=== PATIENT | female | born 1950 | race Caucasian/White ===

== ENCOUNTER → 2023-03-29 | Outpatient (CLI) | payer MEDICARE ==
--- NOTE | 2023-03-31 09:29 | PE ---
EXAMINATION TYPE: PET CT fusion skull to thigh DATE OF EXAM: 03/29/2023 CLINICAL INDICATION:Female, 73 years old with history of R91.1 Lung nodule; TECHNIQUE: Following the intravenous administration of 9.5 mCi of F-18 FDG, whole body images are p erformed from the skull base to the midthigh. Images are reviewed on the computer in the coronal, ax ial, and sagittal planes. Reconstructed rotating images are created on independent workstation and r eviewed on the computer. A non-contrast CT is performed in conjunction with the PET scan. Glucose l evel 93 mg/dL CT DLP: 2 3.92 mGycm, Automated exposure control for dose reduction was used. COMPARISON: CT 02/08/2023, PET/CT None, FINDINGS: Mediastinal SUV mean is 1.9. Hepatic parenchyma SUV mean is 2.4. SKULL BASE AND NECK: No FDG avid lymph nodes within the neck examples include: * Right low neck 12 mm Max SUV 13.2. * Left subpectoral lymph node measuring 8 mm Max SUV 10.0. * Left neck lymph node Max SUV 10.0 measuring 13 mm near the parotid gland medially. CHEST, MEDIASTINUM, AND HILAR REGION: Scattered pulmonary nodules throughout the lungs including: * Right upper lobe peripheral nodule which is partially semisolid measuring 2.1 x 2.1 cm image 75 Ma x SUV 1.9. * Medial right upper lobe measuring 11 mm image 83 Max SUV 7.1 * Left lower lobe 16 mm image 24 max SUV 1.5 * Left lower lobe 13 mm image 80 Max SUV 1.6 * Left upper lobe 13 mm image 80 Max SUV 10.2 Mediastinal lymphadenopathy with increased radiotracer uptake. Examples include: * AP window 15 mm Max SUV 11.8. * Subcarinal 15 mm Max SUV 16.5. * Right hilar max SUV 14.0. * Left pulmonary hilum max SUV 9.5. ABDOMEN AND PELVIS: No suspicious radiotracer activity. Left adrenal nodule measuring 2.7 x 2.1 cm and 1.7 x 1.7 cm. Max SUV 12.4 and 8.6 respectively. Right adrenal nodule Max SUV 5.4. Right hepatic dome focus max SUV 5.2. Lymph node under the right jhonathan of the diaphragm max SUV 6.5. Right external lymph node max SUV 15.8. MUSCULOSKELETAL STRUCTURES: Scattered FDG avid lesions are seen throughout the osseous structures. Examples include: * Left distal clavicle max SUV 14.4. * Left rib 1 medially max SUV 12.0. * L4 vertebral body 13.2 * Manubrium max SUV 9.7. * L5 vertebral body/pedicle max SUV 7.0. * Right sacrum max SUV 15.0. * Left periacetabular region max SUV 19.2. * Left iliac bone max SUV 15.4. * Posterior elements of L3 max SUV 10.0. * Spinous process of L2 max SUV 10.7. * Right rib 11 max SUV 16.9 * Right rib 6 anteriorly max SUV 12.5. * Left rib 10 medially max SUV 14.1 * left rib 4 Posteriorly max SUV 8.[address]: Bilateral aphakia. Atherosclerosis of the arterial vasculature. Heart is mildly enlarged fo r size. Scattered colonic diverticula. Renal sinus calcifications likely vascular in etiology. Athero sclerosis of the coronary arteries and aortic valve leaflet. IMPRESSION: Scattered FDG avid lymph nodes, hepatic and adrenal lesions as well as osseous lesions compatible wit h metastatic disease. Some of the pulmonary nodules have low metabolic activity but remain suspicious for metastatic disease. Primary malignancy is unclear based on imaging.
== END | disposition home or self-care (01) ==
LOC: RADPETMAIN 14:55
PROVIDERS: ATTEND Internal Medicine
DX: R91.8 Other nonspecific abnormal finding of lung field (principal)
CPT/HCPCS: 78815; A9552

== ENCOUNTER 2023-04-17 07:53 | Day surgery (SDC) | payer MEDICARE, OTHER ==
[2023-04-17 08:55] VITALS: RESP 16; TEMP 98.3
--- NOTE | 2023-04-17 09:48 | US ---
ULTRASOUND GUIDED CORE BIOPSY LEFT NECK LYMPH NODE: CLINICAL HISTORY: Enlarged left neck lymph node FINDINGS: The procedure was explained to the patient. The risks, complications, benefits and alternatives were discussed and any questions were answered. Informed consent was obtained. Patient was placed supin e on the ultrasound table and prepped and draped in the usual sterile fashion. Utilizing a 18 gauge needle, two passes were made into the requested left lymph node. Patient was stable throughout the procedure. Pathology is pending. All elements of maximal barrier technique were utilized. IMPRESSION: 1. Successful ultrasound guided core biopsy left neck lymph node.
[2023-04-17 10:13] VITALS: BP 143/65; PULSE 70
== END 2023-04-17 09:43 | disposition home or self-care (01) ==
LOC: RADPROMAIN 07:53
PROVIDERS: ATTEND Internal Medicine
DX: R22.1 Localized swelling, mass and lump, neck (principal)
CPT/HCPCS: 20206; 76942; 88305; 88341; 88342

== ENCOUNTER → 2023-05-04 | Outpatient (CLI) | payer MEDICARE ==
--- NOTE | 2023-05-04 15:30 | MR ---
EXAMINATION TYPE: MR brain wo/w con DATE OF EXAM: 05/04/2023 12:22 PM CLINICAL INDICATION:Female, 73 years old with history of C34.90MALIG NEOPLASM OF UNSP PART OF UNSP BR ONC OR LUNG; PH[facility], Lung cancer. COMPARISON: Pet/CT 03/29/2023. TECHNIQUE: Multi planar, multi sequence imaging was performed through the brain including: T1, T2, In version recovery, susceptibility weighted imaging and gradient echo imaging and Diffusion weighted im aging. The patient was then given intravenous contrast and multi planar, T1 fat-saturation images wer e obtained. IV Contrast: 5.5 cc Gadavist FINDINGS: Scattered enhancing foci are present including right occipital lobe measuring 7 mm, right t emporal lobe measuring 6 mm, left mesial temporal lobe measuring 7 mm, and left parietal lobe measuri ng 5 mm. Bilateral choroid plexus and/or granulomas. Mild cerebral atrophy with proportional dilation of ventricular system. Diffusion-weighted imaging shows no evidence of restricted diffusion to sugg est acute/subacute infarct. Intracranial arterial flow voids are maintained. Midline structures show no abnormality. Scattered foci of high T2 signal intensity are seen within the periventricular white matter. The susceptibility weighted images reveal microhemorrhage infarct in the right frontal lobe w ith focus of blooming artifact. The bone marrow signal is within normal limits. Paranasal sinuses and mastoid air cells: No significant paranasal sinus disease. Visualized orbits: Bilaterally aphakia. IMPRESSION: 1. Scattered metastatic disease throughout the brain. 2. No evidence for acute/subacute infarct. 3. Nonspecific white matter changes, likely related to small vessel ischemic disease.
== END | disposition home or self-care (01) ==
LOC: RADMRIMAIN 11:32
PROVIDERS: ATTEND Internal Medicine
DX: C34.90 Malignant neoplasm of unspecified part of unspecified bronchus or lung (principal); C79.31 Secondary malignant neoplasm of brain; R90.82 White matter disease, unspecified
CPT/HCPCS: 70553; A9585

== ENCOUNTER → 2023-05-21 | Outpatient (CLI) | payer MEDICARE, OTHER ==
--- NOTE | 2023-05-21 14:34 | US ---
EXAMINATION TYPE: US venous doppler duplex LE LT DATE OF EXAM: 05/21/2023 2:22 PM COMPARISON: NONE CLINICAL INDICATION: Female, 73 years old with history of R22.42 LOCALIZED SWELLING, MASS AND LUMP, L EFT; Pt states left leg pain, on chemo SIDE PERFORMED: Left TECHNIQUE: The lower extremity deep venous system is examined utilizing real time linear array sonog elton with graded compression, doppler sonography and color-flow sonography. VESSELS IMAGED: Common Femoral Vein Deep Femoral Vein Greater Saphenous Vein * Femoral Vein Popliteal Vein Small Saphenous Vein * Proximal Calf Veins (* superficial vessels) Left Leg: Negative for DVT Results called to Elizabet at time of exam IMPRESSION: Grayscale, color doppler, spectral doppler imaging performed of the deep veins of the lo wer extremities. There is normal flow, compressibility, vascular waveforms.
== END | disposition home or self-care (01) ==
LOC: RADUSWWP 13:43
PROVIDERS: ATTEND Radiology Radiation Oncology
DX: R22.42 Localized swelling, mass and lump, left lower limb (principal)

== ENCOUNTER → 2023-06-11 | Outpatient (CLI) | payer MEDICARE, OTHER ==
--- NOTE | 2023-06-11 17:32 | MR ---
EXAMINATION TYPE: MR brain wo/w con DATE OF EXAM: 06/11/2023 12:03 PM COMPARISON: NONE HISTORY: Malignant neoplasm of brain CONTRAST: Patient received 5 mL intravenous Gadavist gadolinium contrast. Multiplanar and multispin-echo imaging of the brain was performed . Pre and post contrast enhanced i mages are obtained. The ventricles, basal cisterns and sulci overlying the cerebral convexities are mildly enlarged. There is evidence of mild periventricular white matter ischemic demyelination. Remote deep white matter insults are also noted. No acute edema is seen on diffusion weighted imaging. There is no evidence for midline shift or mass effect. Acute intracranial hemorrhage or extra-axial collection is not evident. Right occipital lesion image 93 measures 4.8 mm versus 7.5 mm previously. Posterior right parietal le isaac image 83 measures 3.6 mm versus 6.2 mm previously. Lesion adjacent to the proximal temporal horn on the left image 70 measures 5.1 mm versus 7.1 mm previously. No new lesions are seen. The paranasal sinuses and mastoid air cells are well-aerated. IMPRESSION: Age-related atrophic and chronic small vessel ischemic change. No acute intracranial process at this time. No new lesions are seen. 3 lesions described persist although are smaller in size.
== END | disposition home or self-care (01) ==
LOC: RADMRIMAIN 10:26
PROVIDERS: ATTEND Radiology Radiation Oncology
DX: G31.1 Senile degeneration of brain, not elsewhere classified (principal); I67.82 Cerebral ischemia; C79.31 Secondary malignant neoplasm of brain; C79.89 Secondary malignant neoplasm of other specified sites; C79.51 Secondary malignant neoplasm of bone; C80.1 Malignant (primary) neoplasm, unspecified
CPT/HCPCS: 70553; A9585

== ENCOUNTER 2023-06-18 17:28 | Emergency (ER) | payer MEDICARE, OTHER ==
--- NOTE | 2023-06-18 17:44 | ED ---
General Adult HPI - General Chief complaint: Extremity Problem,Nontraumatic Stated complaint: R Leg Pain Time Seen by Provider: 06/18/23 17:42 Source: patient, family, RN notes reviewed Mode of arrival: wheelchair Limitations: no limitations - History of Present Illness Initial comments: 73 year old female presents to the emergency department for evaluation of right leg pain. She states that the pain is mostly in her right hip she denies any lower extremity swelling, redness. Denies recent fever, chills, nausea, vomiting. Patient states that she has bone cancer in her ribs and spine. She undergoes immunotherapy. She reports having a treatment today. Patient states that she takes oxycodone which has not been helping. - Related Data Home Medications Medication Instructions Recorded Confirmed Aspirin EC [Ecotrin Low Dose] 81 mg PO DAILY 04/09/23 04/17/23 amLODIPine BESYLATE/BENAZEPRIL 1 cap PO HS 04/09/23 04/17/23 [Lotrel 10-20 mg Capsule] Previous Rx's Medication Instructions Recorded Lidocaine 5% Patch [Lidoderm 5% 1 patch TOPICAL DAILY #30 patch 06/18/23 Patch] Allergies Allergy/AdvReac Type Severity Reaction Status Date / Time almond oil Allergy Rash/Hives Verified 04/17/23 08:39 Review of Systems ROS Statement: Those systems with pertinent positive or pertinent negative responses have been documented in the HPI. ROS Other: All systems not noted in ROS Statement are negative. Past Medical History Past Medical History: Cancer, Hypertension Additional Past Medical History / Comment(s): ENDOMETRIOSIS, BASAL CELL CARCINOMA LEFT ANKLE 2021 History of Any Multi-Drug Resistant Organisms: None Reported Past Surgical History: Hernia Repair, Tubal Ligation Additional Past Surgical History / Comment(s): CYST REMOVAL ON VOCAL CORDS Past Anesthesia/Blood Transfusion Reactions: No Reported Reaction Past Psychological History: No Psychological Hx Reported Smoking Status: Current every day smoker Past Alcohol Use History: Rare Past Drug Use History: None Reported - Past Family History Sister(s) Family Medical History: Cancer Additional Family Medical History / Comment(s): colon cancer, epiglottis cancer General Exam Limitations: no limitations General appearance: alert, in no apparent distress Head exam: Present: atraumatic, normocephalic, normal inspection Eye exam: Present: normal appearance, PERRL, EOMI. Absent: scleral icterus, conjunctival injection, periorbital swelling ENT exam: Present: normal exam, mucous membranes moist Neck exam: Present: normal inspection. Absent: tenderness, meningismus, lymphadenopathy Respiratory exam: Present: normal lung sounds bilaterally. Absent: respiratory distress, wheezes, rales, rhonchi, stridor Cardiovascular Exam: Present: regular rate, normal rhythm, normal heart sounds. Absent: systolic murmur, diastolic murmur, rubs, gallop, clicks GI/Abdominal exam: Present: soft, normal bowel sounds. Absent: distended, tenderness, guarding, rebound, rigid Extremities exam: Present: normal inspection, full ROM, tenderness (Right hip), normal capillary refill. Absent: pedal edema, joint swelling, calf tenderness Back exam: Present: normal inspection Neurological exam: Present: alert, oriented X3 Psychiatric exam: Present: normal affect, normal mood Skin exam: Present: warm, dry, intact, normal color. Absent: rash Course Vital Signs 06/18/23 06/18/23 06/18/23 17:36 20:41 21:30 Temperature 98.6 F 97.8 F 97.8 F Pulse Rate 93 92 82 Respiratory 20 18 18 Rate Blood Pressure 162/79 138/78 136/72 O2 Sat by Pulse 96 98 98 Oximetry Medical Decision Making - Medical Decision Making Was pt. sent in by a medical professional or institution ([facility], [facility], urgent care, hospital, or detention...) When possible be specific @ -No Did you speak to anyone other than the patient for history (EMS, parent, family, police, friend...)? What history was obtained from this source @ -No Did you review nursing and triage notes (agree or disagree)? Why? @ -I reviewed and agree with nursing and triage notes Were old charts reviewed (outside hosp., previous admission, EMS record, old EKG, old radiological studies, urgent care reports/EKG's, detention records)? Report findings @ -No old charts were reviewed Differential Diagnosis (chest pain, altered mental status, abdominal pain women, abdominal pain men, vaginal bleeding, weakness, fever, dyspnea, syncope, headache, dizziness, GI bleed, back pain, seizure, CVA, palpatations, mental health, musculoskeletal)? @ -Differential Musculoskeletal Muscular strain, contusion, ligament sprain, fracture, arthritis, septic arthritis, bursitis, cellulitis, muscle spasm, nerve compression, DVT, arterial occlusion, herpes zoster, electrolyte abnormality, tumor.... This is not meant to be in all inclusive list EKG interpreted by me (3pts min.). @ -None X-rays interpreted by me (1pt min.). @ -X-ray of the right femur obtained which shows no acute fracture or lytic lesion CT interpreted by me (1pt min.). @ -None done U/S interpreted by me (1pt. min.). @ -None done What testing was considered but not performed or refused? (CT, X-rays, U/S, labs)? Why? @ -None What meds were considered but not given or refused? Why? @ -None Did you discuss the management of the patient with other professionals (professionals i.e. , PA, [facility], lab, RT, psych nurse, social science manager, academic affairs specialist, teacher, environmental technical officer, case management coordinator)? Give summary @ -No Was smoking cessation discussed for >3mins.? @ -No Was critical care preformed (if so, how long)? @ -No Were there social determinants of health that impacted care today? How? (Homelessness, low income, unemployed, alcoholism, drug addiction, transportation, low edu. Level, literacy, decrease access to med. care, residential, rehab)? @ -No Was there de-escalation of care discussed even if they declined (Discuss DNR or withdrawal of care, Hospice)? DNR status @ -No What co-morbidities impacted this encounter? (DM, HTN, Smoking, COPD, CAD, Cancer, CVA, ARF, Chemo, Hep., AIDS, mental health diagnosis, sleep apnea, morbid obesity)? @ -None Was patient admitted / discharged? Hospital course, mention meds given and route, prescriptions, significant lab abnormalities, going to OR and other pertinent info. @ -Discharge. Patient presented to the emergency department for evaluation of right leg pain. Patient has been taking her home medications without relief. Patient is hoping for symptom control at this time. X-rays obtained which show no acute fracture or lytic lesions at this time. Patient was provided pain medication and is feeling much better. Patient agreeable with plan to discharge home. Patient stable at time of discharge. Case discussed with Dr. Wren Undiagnosed new problem with uncertain prognosis? @ -No Drug Therapy requiring intensive monitoring for toxicity (Heparin, Nitro, Insulin, Cardizem)? @ -No Were any procedures done? @ -No Diagnosis/symptom? @ -Right leg pain, bone cancer Acute, or Chronic, or Acute on Chronic? @ -Acute Uncomplicated (without systemic symptoms) or Complicated (systemic symptoms)? @ -Uncomplicated Side effects of treatment? @ -No Exacerbation, Progression, or Severe Exacerbation? @ -No Poses a threat to life or bodily function? How? (Chest pain, [place], [place], pneumonia, PE, COPD, DKA, ARF, appy, cholecystitis, CVA, Diverticulitis, Homicidal, Suicidal, threat to staff... and all critical care pts) @ -No Disposition Clinical Impression: Right leg pain Disposition: HOME SELF-CARE Condition: Stable Instructions (If sedation given, give patient instructions): Arthralgia (ED) Additional Instructions: Please follow up with your appointment as scheduled tomorrow. Return to the emergency department for new or worsening symptoms. Prescriptions: Lidocaine 5% Patch [Lidoderm 5% Patch] 1 patch TOPICAL DAILY #30 patch Is patient prescribed a controlled substance at d/c from ED?: No Referrals: Dario Aguiar MD [REFERRING] - 1-2 days
[2023-06-18] MEDS: LIDOCAINE 4% PATCH TOPICAL ONE (20:27)
[2023-06-18] MEDS: KETOROLAC 15 MG/ML 1 ML VIAL IM STA (20:28)
[2023-06-18] MEDS: HYDROmorphone 1 MG/ML 1 ML SYRINGE IM STA (20:30)
--- NOTE | 2023-06-18 20:37 | XR ---
EXAMINATION TYPE: XR femur 2 views RT DATE OF EXAM: 06/18/2023 Comparison: None Clinical History: 73-year-old female pain, hx bone ca Findings: Vascular calcifications are present. Osteopenia. No acute fracture, subluxation, dislocation seen. No knee joint effusion. Generalized muscle atrophy. Impression: Vascular calcifications. Osteopenia. No lytic destructive lesion is identified within the right femur at this time.
[2023-06-18 20:47] VITALS: RESP 18; TEMP 97.8
[2023-06-18 21:43] VITALS: BP 136/72; PULSE 82
== END 2023-06-18 21:30 | disposition home or self-care (01) ==
LOC: EC 17:28
DX: M79.604 Pain in right leg (principal); I10 Essential (primary) hypertension; F17.200 Nicotine dependence, unspecified, uncomplicated; Z79.82 Long term (current) use of aspirin; Z79.899 Other long term (current) drug therapy; Z88.8 Allergy status to other drugs, medicaments and biological substances
CPT/HCPCS: 73552; 99283; 96372 ×2; J1170; J1885

== ENCOUNTER → 2023-06-21 | Outpatient (CLI) | payer MEDICARE, OTHER ==
--- NOTE | 2023-06-22 10:13 | MR ---
EXAMINATION TYPE: MR hip RT wo/w con DATE OF EXAM: 06/21/2023 COMPARISON: Prior PET/CT March 29, 2023 HISTORY: Right hip pain, secondary malignant neoplasm of brain/bone/other sites. Metastatic lung canc er. CONTRAST: Standard multiplanar, multisequence MRI departmental protocol images were obtained without contrast a nd with 5.5 mL intravenous Gadavist gadolinium contrast. FINDINGS: There is mild to moderate narrowing and mild spurring of both hip joints. There are symmetr ic small hip joint effusions. Femoral head shapes are maintained bilaterally. Tiny T2 hyperintense le sions in the superior aspect of this are seen bilaterally. Lesion slightly larger on the right with a djacent T2 hyperintense lesion in the superior acetabulum. No definitive enhancing osseous lesion in the right hip. Left inferior acetabulum shows larger enhancing lesions corresponding to PET/CT with m etastatic lesion extending into the anterior wall and column. Muscle bulk is symmetric and maintained bilaterally. No groin hernia or adenopathy is seen. There are additional metastatic lesions throughout the bilateral sacrum with largest one abutting the right sacroiliac joint. There are additional left iliac bone metastatic foci. Distal colonic diverticula are present. No bowel dilatation. No free fluid in the pelvis. Urinary joyce dder is unremarkable. IMPRESSION: Osseous metastatic disease is redemonstrated. Some slight progression in size and number of lesions from recent PET/CT noted. One of largest lesions in the anterior left hip is redemonstrate d. No definitive new focal metastatic lesions in the right hip.
== END | disposition home or self-care (01) ==
LOC: RADMRIMAIN 21:15
PROVIDERS: ATTEND Radiology Radiation Oncology
DX: C79.51 Secondary malignant neoplasm of bone (principal); C79.31 Secondary malignant neoplasm of brain; C79.89 Secondary malignant neoplasm of other specified sites; C34.90 Malignant neoplasm of unspecified part of unspecified bronchus or lung
CPT/HCPCS: 73723; A9585

== ENCOUNTER → 2023-06-24 | Outpatient (CLI) | payer MEDICARE, OTHER ==
--- NOTE | 2023-07-01 15:41 | MR ---
EXAMINATION TYPE: MR femur/thigh RT wo/w con DATE OF EXAM: 06/24/2023 COMPARISON: Correlation MRI right hip 06/21/2023 HISTORY: 73-year-old female C79.51, C79.31, Right thigh pain x5 months, Hx Lung cancer and also cance r in Ribs, shoulder, ankle, neck, lymph nodes, TECHNIQUE: Multiplanar, multisequence images of the right femur were obtained before and after admini stration of 5.5 mL intravenous Gadavist gadolinium contrast. Coronal and axial images of the contral ateral side for comparison purposes. FINDINGS: Very heterogeneous marrow signal throughout likely in part reflecting red marrow hyperplasia. Known o sseous metastatic disease anterior right femoral head. A 9 mm intramedullary focus of bright T2 signal and marrow replacement along the proximal third femor al shaft, coronal image 14 and postcontrast sagittal image 18. This shows avid postcontrast enhanceme nt but no significant associated cortical thinning or associated soft tissue component. There is mild adjacent muscular edema within the anterior quadriceps showing corresponding postcontra st enhancement. Incidentally, there is an intramuscular lipoma of the adjacent vastus medialis at this same level piedad suring 6.7 x 2.6 x 1.4 cm. No suspicious nodularity or enhancing components are seen here Questionable second intramedullary lesion at the subtrochanteric level measuring 1.0 cm showing faint enhancement. IMPRESSION: 1. An enhancing 9 mm intramedullary osseous metastasis within the proximal third right femoral shaft. No associated cortical thinning or extraosseous soft tissue component. 2. Some nonspecific edema in the quadriceps musculature just anterior to this level. No soft tissue d eposit is seen here. The exact etiology for the muscular edema is unclear. 3. 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 Questionable clinical significance. 4. Possible second intramedullary lesion in the subtrochanteric proximal right femur. Again, no corti galdino destruction or extraosseous soft tissue component. 5. Known osseous metastasis anterior right femoral head.
== END | disposition home or self-care (01) ==
LOC: RADMRIMAIN 20:45
PROVIDERS: ATTEND Radiology Radiation Oncology
DX: C79.51 Secondary malignant neoplasm of bone (principal); C79.31 Secondary malignant neoplasm of brain; C79.89 Secondary malignant neoplasm of other specified sites; C80.1 Malignant (primary) neoplasm, unspecified; R60.0 Localized edema
CPT/HCPCS: 73720; A9585

== ENCOUNTER → 2023-08-19 | Outpatient (CLI) | payer MEDICARE ==
--- NOTE | 2023-08-19 12:44 | MR ---
EXAMINATION TYPE: MR brain wo/w con DATE OF EXAM: 08/19/2023 12:26 PM CLINICAL INDICATION:Female, 73 years old with history of C79.51 SECONDARY MALIGNANT NEOPLASM OF BONE C79.31; PHH, Malignant neoplasm of brain. COMPARISON: 06/11/2023. 05/04/2023 TECHNIQUE: Multi planar, multi sequence imaging was performed through the brain including: T1, T2, In version recovery, susceptibility weighted imaging and gradient echo imaging and Diffusion weighted im aging. The patient was then given intravenous contrast and multi planar, T1 fat-saturation images wer e obtained. IV Contrast: 5.5 cc Gadavist FINDINGS: * Interval decrease in size of right occipital lobe enhancing focus measuring 3 mm, previously 7 on 05/04/2023 and 5 mm on 06/11/2023. Series 801 image 128. * Right temporal lobe lesion is no longer visualized. * There remains tiny focus in the left parietal lobe 2-3 mm of enhancement. Series 801 image 145. Abnormal enhancement within the left temporalis muscle is unchanged series 801 image 120 measuring 11 x 5 mm measuring 11 x 5 mm dating back to 05/04/2023 possibly vascular etiology. The escalona-white junctions, ventricular system, basal cisterns appear unremarkable. Diffusion-weighted imaging shows no evidence of restricted diffusion to suggest acute/subacute infarct. Intracranial ar terial flow voids are maintained. Midline structures show no abnormality. Scattered foci of high T2 s ignal intensity are seen within the periventricular white matter. Focus of Blooming artifact in the r ight frontal lobe compatible with tiny microhemorrhage. The bone marrow signal is within normal limits. Paranasal sinuses and mastoid air cells: No significant paranasal sinus disease. Visualized orbits: Orbital contents are intact. IMPRESSION: 1. Continued decrease in size of right occipital and left parietal metastatic foci. The right tempora l focus seen on prior is no longer visualized. No new lesions are identified. 2. Nonspecific white matter changes, likely related to small vessel ischemic disease.
== END | disposition home or self-care (01) ==
LOC: RADMRIMAIN 10:24
PROVIDERS: ATTEND Radiology Radiation Oncology
DX: G93.89 Other specified disorders of brain (principal); C79.31 Secondary malignant neoplasm of brain; C79.51 Secondary malignant neoplasm of bone; C79.89 Secondary malignant neoplasm of other specified sites
CPT/HCPCS: 70553; A9585

== ENCOUNTER → 2023-09-05 | Outpatient (CLI) | payer MEDICARE ==
--- NOTE | 2023-09-07 10:25 | PE ---
EXAMINATION TYPE: PET CT fusion whole body DATE OF EXAM: 09/05/2023 CLINICAL INDICATION:Female, 73 years old with history of C34.11 MALIGNANT NEOPLASM OF UPPER LOBE, RIG HT BRO; TECHNIQUE: Following the intravenous administration of 8.1 mCi of F-18 FDG, whole body images are p erformed from the skull base to the midthigh. Images are reviewed on the computer in the coronal, ax ial, and sagittal planes. Reconstructed rotating images are created on independent workstation and r eviewed on the computer. A non-contrast CT is performed in conjunction with the PET scan. Glucose l evel 101 mg/dL CT DLP: 345 mGycm, Automated exposure control for dose reduction was used. COMPARISON: CT None, PET/CT 03/29/2023, FINDINGS: Mediastinal SUV mean is 1.6. Hepatic parenchyma SUV mean is 2.25. SKULL BASE AND NECK: FDG avid lymph nodes within the neck examples include: * Right low neck 12 mm Max SUV 2.4, previously 13.2. * Left subpectoral lymph node measuring 8 mm is no longer visualized previously max SUV 10.0. * Left neck lymph node Max SUV 2.1, previously 10.0 not well appreciated due to surrounding tissues CHEST, MEDIASTINUM, AND HILAR REGION: Scattered pulmonary nodules throughout the lungs including: * Right upper lobe peripheral nodule which is partially semisolid measuring Max SUV 2.84, previously 1.9. * Medial right upper lobe not visualized on today's exam. * Left lateral lower lobe max SUV 1.1, percentage 1.3 * Left superior hilar lymph nodule Max SUV 5.9 previously 4.1. * Left upper lobe 13 mm image 80 Max SUV 4.2, previously 10.2 * Posterior left lower lobe max SUV 3.97, previously 2.7. Mediastinal lymphadenopathy with increased radiotracer uptake. Examples include: * AP window, lymphadenopathy max SUV 6.8, previously 12.96 * Subcarinal Max SUV 2.3, previously 16.5. * Right pulmonary hilum max SUV 2.7, previously 14.0. * Left pulmonary hilum max SUV 3.7, previously 9.5. ABDOMEN AND PELVIS: * Left adrenal nodule Max SUV 2.4, previously 2 nodules 12.4 respectively. * Right adrenal nodule Max SUV 2.6, personally 5.4. * Right hepatic dome focus along the visualized, previously max SUV 5.2. * Lymph node under the right jhonathan of the diaphragm with no longer visualized previously max SUV 6.5. * Right external iliac chain lymph node max SUV 2.7, previously 15.8. MUSCULOSKELETAL STRUCTURES: Scattered FDG avid lesions are seen throughout the osseous structures. Examples include: * Left distal clavicle max SUV 6.3, previously 14.4 destructive bony changes at this time is no pres ent. * Left rib 1 medially max SUV 3.19, previously 12.0. * L4 vertebral body max SUV 5.9, previously 13.2 destructive bony changes with compression fracture on today's exam with 50% height loss * Manubrium max SUV 5.6, previously 9.7 destructive bony changes at this time is no present. * L5 vertebral body/pedicle max SUV 2.4, previously 7.0. * Right sacrum max SUV 2.16, appears 15.0. * Left periacetabular region max SUV 4.5, previously 19.2. * Left iliac bone max SUV 3.1, previously 15.4. * Posterior elements of L3 max SUV 1.78, previous 10.0. * Spinous process of L1 max SUV 4.79, previously 10.7. * Right rib 11 max SUV 3.68, previously 16.9 * Right rib 6 anteriorly max SUV 4.29, previously 12.5. * Left rib 10 medially max SUV 5.46, previously 14.1 * Left scapula max SUV 5.8, previously 11.[address]: Bilateral aphakia. Atherosclerosis of the arterial vasculature. Heart is mildly enlarged fo r size. Scattered colonic diverticula. Renal sinus calcifications likely vascular in etiology. Athero sclerosis of the coronary arteries and aortic valve leaflet. IMPRESSION: A majority of the lymph nodes have decreased in metabolic activity and size while the pulmonary nodul es have mostly increased in metabolic activity compared to prior. Also majority of the osseous struct ures have decreased in metabolic activity but demonstrate destructive changes on today's exam. Pathol ogic fracture of L4 vertebral body with 50% height loss is now present.
== END | disposition home or self-care (01) ==
LOC: RADPETMAIN 11:56
PROVIDERS: ATTEND Family Medicine
DX: C34.11 Malignant neoplasm of upper lobe, right bronchus or lung (principal); R91.8 Other nonspecific abnormal finding of lung field; M79.606 Pain in leg, unspecified
CPT/HCPCS: 78816; A9552

== ENCOUNTER → 2023-11-21 | Outpatient (CLI) | payer MEDICARE ==
--- NOTE | 2023-11-25 13:09 | MR ---
EXAMINATION TYPE: MR brain wo/w con DATE OF EXAM: 11/21/2023 COMPARISON: 08/19/2023 HISTORY: Cancer in Lung, Ribs, shoulder, ankle neck and lymph nodes, Right sided numbness CONTRAST: Performed utilizing 4.5 mL intravenous Gadavist gadolinium contrast. TECHNIQUE: Multiplanar, multiecho imaging on a 3.0 Kiley magnet is performed through the brain. Stud y is performed within 24 hours of arrival to the hospital. The craniovertebral junction is normal. The pituitary is normal. Diffusion-weighted imaging is performed. No abnormal hyperintensity is present to suggest an acute i ntracranial infarct or acute ischemic change. Is some mild increased uptake within the left delroy may be some chronic white matter ischemic change. Periventricular white matter hyperintensities present on inversion recovery and T2-weighted sequences . The largest area is in the right centrum semiovale measuring 0.5 cm. Additional centrum semiovale white matter changes are present. Ventricles and sulci are appropriate for the patient age. There is stable fullness within the bilater al choroid plexus near the posterior lateral ventricles. Within the left parietal calvarium there is a 0.4 x 1.8 cm area of enhancement present previously and larger than the comparison of 0.5 x 1.1 cm. Previous enhancement in the right occipital lobe is not evident on the current exam. Previous enhance ment in the left occipital cortex not evident on the current exam. IMPRESSION: 1. Increased prominence of a left parietal calvarial enhancing lesion. 2. Previous areas of enhancement within the occipital lobes not evident on the current exam.
== END | disposition home or self-care (01) ==
LOC: RADMRIMAIN 12:27
PROVIDERS: ATTEND Radiology Radiation Oncology
DX: C79.31 Secondary malignant neoplasm of brain (principal); C79.51 Secondary malignant neoplasm of bone
CPT/HCPCS: 70553; A9585

== ENCOUNTER → 2023-12-19 | Outpatient (CLI) | payer MEDICARE, OTHER ==
--- NOTE | 2024-01-16 09:53 | PE ---
Patient: Elenita Cordero Ordering Physician: Unknown, Unknown ID: [id number] Phone, Pager: Phone: N/A Pager: N/A : [phone] Age/Gender: 73Y, F Primary Location: N/A Procedure: PETCT SKULL TO THIGH [facility] Date: 12/19/2023 2:06:00 PM EXAMINATION TYPE: PET CT fusion skull to thigh DATE OF EXAM: 12/27/2023 CLINICAL INDICATION: Lung cancer TECHNIQUE: Following the intravenous administration of 11.05 mCi of F-18 FDG, whole body images are performed from the skull base to the midthigh. Images are reviewed on the computer in the coronal, axial, and sagittal planes. Reconstructed rotating images are created on independent workstation and reviewed on the computer. A non-contrast CT is performed in conjunction with the PET scan. Glucose level 1:30 mg/dL CT DLP: 159 mGycm, Automated exposure control for dose reduction was used. COMPARISON: CT None, PET/CT 09/05/2023, MRI: None FINDINGS: Mediastinal SUV mean is 1.2. Hepatic parenchyma SUV mean is 1.8 SKULL BASE AND NECK: Physiologic uptake within the left spare fixer muscles. No suspicious FDG avid lymph nodes CHEST, MEDIASTINUM, AND HILAR REGION: Scattered pulmonary nodules throughout the lungs including: * Right upper lobe peripheral nodule which is partially semisolid measuring Max SUV 2.9, previously 2 .84, 1.9. * Left lateral lower lobe max SUV 1.3, previously 1.1, 1.3 * Left superior hilar lymph nodule Max SUV 2.7, previously 5.9 4.1. * Left upper lobe 13 mm image 80 Max SUV 1.8, previously 4.2, 10.2 * Posterior left lower lobe max SUV 1.3, previously 3.97, 2.7. No FDG avid lymph nodes in the mediastinum on today's exam. Right axillary lymph node max SUV 2.3, pr eviously 2.6. Left axillary lymph nodes max SUV 4.2, previously 6.8. These are both similar in size to prior measuring 7 mm on the right and 12 mm in short axis on the le ft. ABDOMEN AND PELVIS: * Left adrenal nodule Max SUV 2.4, previously 2 nodules 12.4 respectively. * Right adrenal nodule Max SUV 2.6, personally 5.4. * Right hepatic dome focus along the visualized, previously max SUV 5.2. * Lymph node under the right jhonathan of the diaphragm with no longer visualized previously max SUV 6.5. * Right external iliac chain lymph node max SUV 2.7, previously 15.8. MUSCULOSKELETAL STRUCTURES: Interval decrease in metabolic activity within the osseous lesions. Compression fracture of L4 possibly pathologic with up to 50-70% height loss and retropulsion. OTHER CT: Bilateral aphakia. Atherosclerosis of the arterial vasculature. Heart is mildly enlarged fo r size. Scattered colonic diverticula. Renal sinus calcifications likely vascular in etiology. Athero sclerosis of the coronary arteries and aortic valve leaflet. IMPRESSION: 1. Positive response to therapy with decrease in metabolic activity throughout the lesions seen on p rior. There remains bilateral axillary lymph nodes with mild uptake and decreasing uptake within pulm onary nodule. 2. No suspicious uptake within the osseous lesion seen on prior on today's exam. 3. Compression fracture of L4 possibly pathologic with up to 50-70% height loss and retropulsion. Si milar appearance to 09/05/2023.
== END | disposition home or self-care (01) ==
LOC: RADPETMAIN 12:21
PROVIDERS: ATTEND Internal Medicine
DX: C34.11 Malignant neoplasm of upper lobe, right bronchus or lung (principal); M48.56XA Collapsed vertebra, not elsewhere classified, lumbar region, initial encounter for fracture
CPT/HCPCS: 78815; A9552

== ENCOUNTER → 2024-02-11 | Outpatient (CLI) | payer MEDICARE ==
--- NOTE | 2024-02-19 22:39 | MR ---
EXAMINATION TYPE: MR brain wo/w con DATE OF EXAM: 02/11/2024 COMPARISON: 11/21/2023 HISTORY: 74-year-old female C79.31, Lung cancer, brain mets. TECHNIQUE: Multiplanar, multisequence images of the brain and brainstem were acquired before and aft er administration of 4 mL IV Gadavist. Diffusion weighted imaging is performed. FINDINGS: No suspicious restricted diffusion to suggest acute infarct. Scattered patchy areas of mild vasogenic edema related to avidly enhancing cortical/subcortical lesio ns. The largest measures 1 cm at the right frontal insular cortex junction. Largest on the left measu res 6 mm at the medial posterior temporal lobe.. There are 3 lesions in the right cerebral hemisphere and 2 lesions in the left cerebral hemisphere. In retrospect, these lesions were either not present or punctate very difficult to appreciate, larges t measuring up to 4 mm. No midline shift, herniation, hydrocephalus, or extra-axial fluid collection. There is moderate volume loss overlying the bilateral cerebral convexities and background mild-to-mod erate scattered bright white matter change related to chronic small vessel ischemic disease. Bilateral choroid plexus cysts. Some internal debris on the right. Redemonstrated plaque-like area of enhancement along the left lateral temporal scalp measuring 1.6 cm AP, not significantly changed. Major intracranial flow voids are intact. Midline structures demonstrate normal morphology. The craniocervical junction is normal. Dural venous sinuses are patent. Mild mucosal thickening ethmoid air cells. Small amount of fluid inferior left mastoid air cells. Alyssa bes are intact. IMPRESSION: 1. Approximately 5 small enhancing foci of brain metastases. The largest measures 1 cm on the right a nd 6 cm on the left. Associated mild vasogenic edema. In retrospect, compared to 11/21/2023, these les ions were either not present or were punctate and very difficult to appreciate. Findings compatible w ith interval disease progression. 2. The plaque-like enhancement along the left lateral temporal scalp measuring 1.6 cm AP is not signi ficantly changed. 3. Background mild to moderate burden of chronic small vessel ischemic disease and moderate cerebral atrophy. [facility], Workstation: [email or web address], 02/19/2024 10:37 PM
== END | disposition home or self-care (01) ==
LOC: RADMRIMAIN 11:20
PROVIDERS: ATTEND Radiology Radiation Oncology
DX: C79.31 Secondary malignant neoplasm of brain
CPT/HCPCS: 70553

== ENCOUNTER → 2024-04-09 | Outpatient (CLI) | payer MEDICARE ==
--- NOTE | 2024-04-10 16:54 | PE ---
EXAMINATION TYPE: PET CT fusion skull to thigh DATE OF EXAM: 04/09/2024 CLINICAL INDICATION:Female, 74 years old with history of C34.82 LUNG CANCER; TECHNIQUE: Following the intravenous administration of 10.38 mCi of F-18 FDG, whole body images are performed from the skull base to the midthigh. Images are reviewed on the computer in the coronal, axial, and sagittal planes. Reconstructed rotating images are created on independent workstation and reviewed on the computer. A non-contrast CT is performed in conjunction with the PET scan. Glucose level 86 mg/dL CT DLP: 187.01 mGycm, Automated exposure control for dose reduction was used. COMPARISON: CT None, PET/CT 01/16/2024, 09/05/2023, 03/29/2023, MRI: 02/11/2024, 11/21/2023, 08/19/2023, , 06/21/2023, 06/11/2023, 05/04/2023 FINDINGS: Mediastinal SUV mean is 1.5. Hepatic parenchyma SUV mean is 2.0. SKULL BASE AND NECK: No suspicious radiotracer activity. CHEST, MEDIASTINUM, AND HILAR REGION: New and enlarging FDG avid left axillary lymph nodes with a maximum SUV of 5.5, previously 4.2. Nonenlarged precarinal lymph node with a maximum SUV of 2.7, previously 1.4. Right hilar FDG avid lymph node with a maximum SUV of 3.2, previously 2.2. Decrease SUV activity within a right axillary lymph node now demonstrating a maximum SUV of 1.9, prev iously 3.8. Scattered pulmonary nodules throughout the lungs including: Medial left upper lobe 9 mm pulmonary nodule with a maximum SUV of 3.4, previously 1.8. Medial posterior left upper lobe 2.0 cm pulmonary nodule with a maximum SUV of 4.7, previously 2.7. Additional pulmonary nodules do not demonstrate FDG activity above background which may be due to siz e. ABDOMEN AND PELVIS: No suspicious radiotracer activity above background now demonstrated. MUSCULOSKELETAL STRUCTURES: Multiple metastatic osseous lesions are redemonstrated. Example includes a L4 vertebral body pathologic fracture with retropulsion and a maximum SUV of 3.5, previously 2.5. Distal left clavicular pathologic fracture with a maximum SUV of 4.2. Previously 3.2. Left scapular sclerotic lesion with a maximum SUV of 4.8, previously 3.5. Sternal lesion with maximum SUV of 2.6, previously 2.1. OTHER CT: Bilateral aphakia. Atherosclerosis of the arterial vasculature. Heart is mildly enlarged fo r size. Scattered colonic diverticula. Renal sinus calcifications likely vascular in etiology. Athero sclerosis of the coronary arteries and aortic valve leaflet. Remote right-sided nonunion rib fracture s. IMPRESSION: 1. Mixed response to therapy with marginal increase in activity within pulmonary nodules and mediast inal/right hilar adenopathy. Multiple new and enlarging FDG avid left axillary lymph nodes identified with decrease in size and FDG activity of right axillary lymph nodes. 2. Scattered metastatic osseous lesions redemonstrated with marginal increase in FDG activity from p rior exam. 3. Pathologic fracture of the L4 vertebral body with up to 50-70% height loss and retropulsion. Columba lar to prior exams. [facility], , 04/10/2024 4:51 PM
== END | disposition home or self-care (01) ==
LOC: RADPETMAIN 14:51
PROVIDERS: ATTEND Internal Medicine
DX: C34.82 Malignant neoplasm of overlapping sites of left bronchus and lung (principal); C79.51 Secondary malignant neoplasm of bone; R59.0 Localized enlarged lymph nodes; R91.8 Other nonspecific abnormal finding of lung field
CPT/HCPCS: 78815; A9552

== ENCOUNTER → 2024-05-25 | Outpatient (CLI) | payer MEDICARE ==
--- NOTE | 2024-05-25 11:17 | MR ---
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 FINDINGS: Diffusion weighted images demonstrate no evidence of a recent infarct or other diffusion ab normality. Mild degenerative change with areas of abnormal signal the white matter most typical remot e microvascular ischemia. Linear area of enhancement along the left lateral scalp is stable. Previously noted right frontal lesion measuring 10 mm on prior exam now measures 11.5 mm. Previously noted left temporal lobe lesion previously measuring 6.2 mm now measures 6 7 mm. Both of t hese lesions demonstrate a low central area of signal which may represent post therapeutic change or response there. The previously noted dense sub-5 mm left superior parietal nodule is no longer seen correlate for res ponse to therapy. The amount of vasogenic edema noted bilaterally is stable. Right superior parietal enhancing lesion is reduced in size now punctate in appearance measuring 1 mm and previously measuring 2 to 3 mm. There is a stable punctate 2 mm area of enhancement in the left parietal lobe image 114 series 701. There is a 1 mm punctate area of enhancement in the right lateral parietal cortex reduced in size fro m prior exam where it measured 2 to 3 mm. Punctate areas of abnormal signal involving the basal ganglia are most typical of prominent Virchow-R obin spaces or tiny remote areas of lacunar infarct. Midline structures demonstrate normal morphology. The craniocervical junction appears within normal limits. The dural venous sinuses appear patent. The visualized sinuses are clear and the globes are intact. IMPRESSION: 1. The 2 largest lesions involving the right frontal and left temporal lobe are minimally increased i n size but now demonstrate a central low area of signal which may be associated with response to ther apy. The degree of vasogenic edema is stable. Correlate clinically. 2. Interval resolution of a single superior left parietal lesion. 3. Interval reduction in size of two right parietal lesions now measuring 1 mm. Findings suggestive o f response to therapy. 4. Stable additional areas of enhancement as discussed above. 5. No new areas of enhancement. 6. Degenerative and remote ischemic changes. [facility], , 05/25/2024 11:15 AM
== END | disposition home or self-care (01) ==
LOC: RADMRIMAIN 09:54
PROVIDERS: ATTEND Radiology Radiation Oncology
DX: C79.31 Secondary malignant neoplasm of brain (principal); C79.89 Secondary malignant neoplasm of other specified sites; C79.51 Secondary malignant neoplasm of bone; I67.82 Cerebral ischemia; G93.6 Cerebral edema
CPT/HCPCS: 70553; A9585

== ENCOUNTER → 2024-08-24 | Outpatient (CLI) | payer MEDICARE ==
--- NOTE | 2024-08-25 12:36 | MR ---
EXAMINATION TYPE: MR brain wo/w con DATE OF EXAM: 08/24/2024 2:09 PM COMPARISON: None. CLINICAL INDICATION: Female, 74 years old with history of C79.31 Malig neoplasm brain, F/U Brain canc er TECHNIQUE: Multi planar multi sequence imaging of the brain. CONTRAST: Patient received 4.5 mL intravenous Gadobutrol gadolinium contrast. Pre and post contrast enhanced images are obtained. FINDINGS: The ventricles, basal cisterns and sulci overlying the cerebral convexities are mildly enlarged. There is evidence of mild periventricular white matter ischemic demyelination. Remote deep white matter insults are also noted. No acute edema is seen on diffusion weighted imaging. There is no evidence for midline shift or mass effect. Acute intracranial hemorrhage or extra-axial collection is not evident. There is now evidence for dural enhancement throughout suspicious for dural metastatic disease. There is an enlarging left parietal lesion measuring 6.3 mm versus 2.5 mm previously. Additional enhancing lesion adjacent to the posterior sylvian cistern measures 7.3 mm versus 7.1 mm previously. Right fro ntal lesion currently measures 7.7 mm versus 1.1 cm previously. Mild surrounding vasogenic edema is n oted. The paranasal sinuses and mastoid air cells are well-aerated. IMPRESSION: 1.There is now evidence for dural enhancement throughout suspicious for dural metastatic disease. 2. Large in left parietal lesion is noted. 3. Right frontal lesion is slightly smaller in size although does persist. [facility], , 08/25/2024 12:33 PM
== END | disposition home or self-care (01) ==
LOC: RADMRIMAIN 13:19
PROVIDERS: ATTEND Radiology Radiation Oncology
DX: C79.31 Secondary malignant neoplasm of brain (principal); C79.89 Secondary malignant neoplasm of other specified sites; C79.51 Secondary malignant neoplasm of bone; G93.89 Other specified disorders of brain
CPT/HCPCS: 70553; A9585

== ENCOUNTER → 2024-10-22 | Outpatient (CLI) | payer MEDICARE ==
--- NOTE | 2024-10-22 14:23 | PE ---
EXAMINATION TYPE: PET CT fusion skull to thigh DATE OF EXAM: 10/22/2024 CLINICAL INDICATION:Female, 74 years old with history of C34.82 lung ca; TECHNIQUE: Following the intravenous administration of 11.22 mCi of F-18 FDG, whole body images are performed from the skull base to the Mid thigh. Images are reviewed on the computer in the coronal, axial, and sagittal planes. Reconstructed rotating images are created on independent workstation an d reviewed on the computer. A non-contrast CT is performed in conjunction with the PET scan. Glucos e level 99 mg/dL CT DLP: 291.4 mGycm, Automated exposure control for dose reduction was used. COMPARISON: CT None, PET/CT 06/11/2024., MRI: None FINDINGS: Mediastinal SUV mean is 1.7. Hepatic parenchyma SUV mean is 2.0. SKULL BASE AND NECK: No suspicious radiotracer activity. CHEST, MEDIASTINUM, AND HILAR REGION: * Enlarging left upper lobe perihilar nodule measuring 2.5 cm presumed 0.7 Max SUV 6.8 previously 4. 8. * Medial left anterior pulmonary nodule Max SUV 4.4 previously 3.7 measuring 14 mm previously 9 mm. * Left upper lobe pulmonary nodule near the apex measuring 6 mm not significantly changed in size. M ax SUV 1.2, previously 1.0. * Left axillary lymphadenopathy max SUV 6.4 previously 3.6. Measuring up to 14 mm, previously 8 mm. * Right axillary lymph nodes measuring Max SUV 3.0, previously 4.2. * Left perihilar left lung max SUV 4.7 previously not identified area measuring Max SUV 2.1. ABDOMEN AND PELVIS: Uptake in the ney hepatis near the gallbladder max SUV 4.5 previously 2.1 in this region.. MUSCULOSKELETAL STRUCTURES: * Uptake within the distal left clavicle/AC joint max SUV 2.6 previously 3.6 likely on a degenerativ e basis. * Lungs uptake right rib 8 with somewhat exophytic sclerotic lesion suggested max SUV 2.6 previously 2.4. * Remote right rib 7 fracture max SUV 2.4 previously 2.2 with incomplete osseous fusion previously. * Left scapular sclerotic lesion max SUV 2.7 previously 3.6. * Possible early right posterior rib 11 lesion next the 2.0 previously 1.4. Correlating to sclerosis on CT imaging. * Sternal lesion max SUV 2.2 previously 1.8 * Left manubrium lesion max SUV 2.4, previously 2.0. * Right sacral sclerotic lesion next SUV 2.0, previously 1.8. * Left rib 3 sclerotic focus max SUV 1.9, previously 1.9. OTHER CT: Bilateral aphakia. Atherosclerosis of the arterial vasculature. Heart is mildly enlarged fo r size. Scattered colonic diverticula. Renal sinus calcifications likely vascular in etiology. Athero sclerosis of the coronary arteries and aortic valve leaflet. Compression fracture in the spine withou t significant uptake at L4. IMPRESSION: 1. Overall findings of progression of disease with increasing metabolic activity and size of lesions particularly the pulmonary lesions particularly additional increase in size of left axillary lesions /lymph nodes. 2. New from prior Left perihilar lymph node with increased metabolic activity. 3. Indeterminate uptake around the gallbladder fossa possibly lymph node versus other etiology. Cons ider MRI if remains clinical importance. [facility], , 10/22/2024 2:21 PM
== END | disposition home or self-care (01) ==
LOC: RADPETMAIN 10:08
PROVIDERS: ATTEND Internal Medicine
DX: C34.82 Malignant neoplasm of overlapping sites of left bronchus and lung (principal); J98.4 Other disorders of lung; I89.8 Other specified noninfective disorders of lymphatic vessels and lymph nodes
CPT/HCPCS: 78815; A9552

== ENCOUNTER 2024-11-06 12:49 | Emergency (ER) | payer MEDICARE ==
--- NOTE | 2024-11-06 13:20 | ED ---
General Adult HPI - General Chief complaint: Chest Pain Stated complaint: Chest pain,Abn BP Time Seen by Provider: 11/06/24 12:56 Source: patient Mode of arrival: ambulatory - History of Present Illness Initial comments: Dictation was produced using [employer] dictation software. please excuse any grammatical, word or spelling errors. 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 Currently receiving chemo and immunotherapy. States that for the last 1 to 2 days she has been having lower substernal chest pressure that radiates to the back causes an ache. She also has upper abdominal pain. States that abdominal pain is worse with eating. Denies any fever chills night sweats. No shortness of breath. No associated diaphoresis. She states when she eats she feels nauseated. The ROS documented in this emergency department record has been reviewed and confirmed by me. Those systems with pertinent positive or negative responses have been documented in the HPI. All other systems are other negative and/or noncontributory. - Related Data Home Medications Medication Instructions Recorded Confirmed amLODIPine BESYLATE/BENAZEPRIL 1 cap PO DAILY 04/09/23 11/06/24 [Lotrel 10-20 mg Capsule] HYDROcodone/APAP 10-325MG [[place] 1 tab PO Q6HR PRN 07/02/23 11/06/24 10-325] fentaNYL 25MCG/HR PATCH [Duragesic 1 patch TRANSDERM Q72H 11/06/24 11/06/24 25MCG/HR] Allergies Allergy/AdvReac Type Severity Reaction Status Date / Time almond oil Allergy Rash/Hives Verified 11/06/24 16:33 Review of Systems ROS Statement: Those systems with pertinent positive or pertinent negative responses have been documented in the HPI. ROS Other: All systems not noted in ROS Statement are negative. Past Medical History Past Medical History: Cancer, Hypertension Additional Past Medical History / Comment(s): ENDOMETRIOSIS, BASAL CELL CARCINOMA LEFT ANKLE 2021 History of Any Multi-Drug Resistant Organisms: None Reported Past Surgical History: Hernia Repair, Tubal Ligation Additional Past Surgical History / Comment(s): CYST REMOVAL ON VOCAL CORDS Past Anesthesia/Blood Transfusion Reactions: No Reported Reaction Past Psychological History: No Psychological Hx Reported Smoking Status: Current every day smoker Past Alcohol Use History: Rare Past Drug Use History: None Reported - Past Family History Sister(s) Family Medical History: Cancer Additional Family Medical History / Comment(s): colon cancer, epiglottis cancer General Exam - General Exam Comments Initial Comments: PHYSICAL EXAM: General Impression: Alert and oriented x3, not in acute distress HEENT: Normocephalic atraumatic, extra-ocular movements intact, pupils equal and reactive to light bilaterally, mucous membranes moist. 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 Patient was notified this and that would recommend transfer to [facility] or other GI containing facility. Patient refused states that she does not feel sick enough to be transferred. States that she is more concerned about her blood pressure. Patient not have any symptoms of hypertensive emergency. Workup was completed showing no PE. Labs shows some transaminitis which is nonspecific. EKG Findings - EKG Comments: EKG Findings:: My EKG interpretation: Ventricular rate 61, sinus rhythm, KY interval 190, QRS 100, QTc 395. No KY prolongation, no QTC prolongation, no ST or T-wave changes noted. Overall, this EKG is unremarkable Medical Decision Making - Medical Decision Making Was pt. sent in by a medical professional or institution (, PA, DAYCARE MANAGER, urgent care, hospital, or prison...) When possible be specific @ -No Did you speak to anyone other than the patient for history (EMS, parent, family, police, friend...)? What history was obtained from this source @ -Members described above Did you review nursing and triage notes (agree or disagree)? Why? @ -I reviewed and agree with nursing and triage notes Were old charts reviewed (outside hosp., previous admission, EMS record, old EKG, old radiological studies, urgent care reports/EKG's, prison records)? Report findings @ -No old charts were reviewed Differential Diagnosis (chest pain, altered mental status, abdominal pain women, abdominal pain men, vaginal bleeding, musculoskeletal, weakness, fever, dyspnea, syncope, headache, dizziness, GI bleed, back pain, seizure, CVA, palpatations, mental health)? @ -Differential Chest Pain: Stable Angina, Unstable Angina, STEMI, NSTEMI Aortic Dissection, Pneumothorax, Musculoskeletal, Esophageal Spasm GERD, Cholecystitis, Pancreatitis, Zoster, this is not meant to be an all-inclusive list. EKG interpreted by me (3pts min.). @ -See above X-rays interpreted by me (1pt min.). @ -Chest x-ray shows no acute processes CT interpreted by me (1pt min.). @ -Patient had elevated D-dimer. CT angio thoracic and abdominal pelvic aorta showed no PE. No dilated aorta. There was distended gallbladder with wall thickening. U/S interpreted by me (1pt. min.). @ -None done What testing was considered but not performed or refused? (CT, X-rays, U/S, labs)? Why? @ -None What meds were considered but not given or refused? Why? @ -None Was smoking cessation discussed for >3mins.? @ -No Were there social determinants of health that impacted care today? How? (Homelessness, low income, unemployed, alcoholism, drug addiction, transportati on, low edu. Level, literacy, decrease access to med. care, penitentiary, rehab)? @ -Cancer Was there de-escalation of care discussed even if they declined (Discuss DNR or withdrawal of care, Hospice)? DNR status @ -No What co-morbidities impacted this encounter? (DM, HTN, Smoking, COPD, CAD, Cancer, CVA, ARF, Chemo, Hep., AIDS, mental health diagnosis, sleep apnea, morbid obesity)? @ -Cancer Was patient admitted / discharged? Hospital course, mention meds given and route, prescriptions, significant lab abnormalities, going to OR and other pertinent info. @ -74-year-old female with history of adenocarcinoma currently being treated with immuno and chemotherapy presents emergency department chest and abdominal pain. Vital signs upon arrival are within acceptable limits. EKG is unremarkable for acute process. Chest x-ray nonacute. Laboratory evaluation obtained. Elevated D-dimer. Mild transaminitis. Rest of labs unremarkable. CT angio of the chest abdomen pelvis shows no acute processes except for distended gallbladder with wall thickening. Abdominal ultrasound ordered. Gallbladder shows significant debris with intrahepatic biliary dilatation. Case discussed with general surgery and hospitalist who felt that patient not appropriate for admission here given we do not have GI. Patient reevaluated bedside at 5:44 PM disposition options were discussed. He was recommended that patient be transferred. She refused as described above. She understands the risk and benefits of transfer. States that she does not feel ill enough to be transferred. Patient states that she would like to sign out AGAINST MEDICAL ADVICE and follow-up with GI doctor outpatient. 6:11 PM: Was offered AMA papers however after further delineation with her family members she ultimately agreed on transfe. Case discussed with [facility] for transfer. 6:28 PM: Case discussed with attending with [facility] transfer line. Accepting physician is Dr. Christy, for ER transfer Did you discuss the management of the patient with other professionals (professionals i.e. , PA, DAYCARE MANAGER, lab, RT, psych nurse, social science analyst, business intelligence consultant, teacher, evp chief exploration officer, upper caser)? Give summary @ -See above Was critical care preformed (if so, how long)? @ -No Undiagnosed new problem with uncertain prognosis? @ -No Drug Therapy requiring intensive monitoring for toxicity (Heparin, Nitro, Insulin, Cardizem)? @ -No Were any procedures done? @ -No Diagnosis/symptom? Acute, or Chronic, or Acute on Chronic? Uncomplicated (without systemic symptoms) or Complicated (systemic symptoms)? @ -Gallbladder dysfunction Side effects of treatment? @ -No Exacerbation, Progression, or Severe Exacerbation? @ -No Poses a threat to life or bodily function? How? (Chest pain, [place], [place], pneumonia, PE, COPD, DKA, ARF, appy, cholecystitis, CVA, Diverticulitis, Homicidal, Suicidal, threat to staff... and all critical care pts) @ -yes - Lab Data Result diagrams: 11/06/24 13:14 11/06/24 13:14 Lab Results 11/06/24 11/06/24 11/06/24 Range/Units 13:14 13:14 13:14 WBC 8.85 (4.50-10.00) 10*3/uL RBC 4.63 (4.10-5.20) 10*6/uL Hgb 14.5 (12.0-15.0) g/dL Hct 41.5 (37.2-46.3) % MCV 89.6 (80.0-97.0) fL MCH 31.3 (27.0-32.0) pg MCHC 34.9 (32.0-37.0) g/dL Plt Count 306 (140-440) 10*3/uL MPV 9.7 (9.5-12.2) fL Immature Gran % (Auto) 0.8 % Neutrophils % 76.4 % Lymphocytes % 11.8 % Monocytes % 9.7 % Eosinophils % 0.8 % Basophils % 0.5 % Immature Gran # 0.07 H (0.00-0.04) 10*3/uL Neutrophils # 6.77 (1.80-7.70) 10*3/uL Lymphocytes # 1.04 (0.90-5.00) 10*3/uL Monocytes # 0.86 (0.20-1.00) 10*3/uL Eosinophils # 0.07 (0.04-0.35) 10*3/uL Basophils # 0.04 (0.00-0.10) 10*3/uL PT 10.3 (10.0-12.5) sec INR 0.9 (<1.2) APTT 25.0 (22.0-30.0) sec D-Dimer 3.46 H (<0.60) mg/L FEU Sodium 136 L (137-145) mmol/L Potassium 4.3 (3.5-5.1) mmol/L Chloride 98 (98-107) mmol/L Carbon Dioxide 30 (22-30) mmol/L Anion Gap 8 mmol/L BUN 18 H (7-17) mg/dL Creatinine 0.60 (0.52-1.04) mg/dL Est GFR (CKD-EPI)AfAm >90 (>60 ml/min/1.73 sqM) Est GFR (CKD-EPI)NonAf >90 (>60 ml/min/1.73 sqM) Glucose 113 H (74-99) mg/dL Plasma Lactic Acid [place]kel (0.7-2.0) mmol/L Calcium 9.8 (8.4-10.2) mg/dL Magnesium 1.8 (1.6-2.3) mg/dL Total Bilirubin 0.6 (0.2-1.3) mg/dL AST 310 H (14-36) U/L ALT 413 H (4-34) U/L Alkaline Phosphatase 587 H (38-126) U/L Troponin I (0.000-0.034) ng/mL Total Protein 6.6 (6.3-8.2) g/dL Albumin 3.9 (3.5-5.0) g/dL Lipase 66 (23-300) U/L 11/06/24 11/06/24 Range/Units 13:14 13:22 WBC (4.50-10.00) 10*3/uL RBC (4.10-5.20) 10*6/uL Hgb (12.0-15.0) g/dL Hct (37.2-46.3) % MCV (80.0-97.0) fL MCH (27.0-32.0) pg MCHC (32.0-37.0) g/dL Plt Count (140-440) 10*3/uL MPV (9.5-12.2) fL Immature Gran % (Auto) % Neutrophils % % Lymphocytes % % Monocytes % % Eosinophils % % Basophils % % Immature Gran # (0.00-0.04) 10*3/uL Neutrophils # (1.80-7.70) 10*3/uL Lymphocytes # (0.90-5.00) 10*3/uL Monocytes # (0.20-1.00) 10*3/uL Eosinophils # (0.04-0.35) 10*3/uL Basophils # (0.00-0.10) 10*3/uL PT (10.0-12.5) sec INR (<1.2) APTT (22.0-30.0) sec D-Dimer (<0.60) mg/L FEU Sodium (137-145) mmol/L Potassium (3.5-5.1) mmol/L Chloride (98-107) mmol/L Carbon Dioxide (22-30) mmol/L Anion Gap mmol/L BUN (7-17) mg/dL Creatinine (0.52-1.04) mg/dL Est GFR (CKD-EPI)AfAm (>60 ml/min/1.73 sqM) Est GFR (CKD-EPI)NonAf (>60 ml/min/1.73 sqM) Glucose (74-99) mg/dL Plasma Lactic Acid Maykel 1.3 (0.7-2.0) mmol/L Calcium (8.4-10.2) mg/dL Magnesium (1.6-2.3) mg/dL Total Bilirubin (0.2-1.3) mg/dL AST (14-36) U/L ALT (4-34) U/L Alkaline Phosphatase (38-126) U/L Troponin I <0.012 (0.000-0.034) ng/mL Total Protein (6.3-8.2) g/dL Albumin (3.5-5.0) g/dL Lipase (23-300) U/L Disposition Clinical Impression: Abdominal pain Disposition: OTHER INSTITUTION NOT DEFINED Condition: Fair Instructions (If sedation given, give patient instructions): Abdominal Pain (ED) Additional Instructions: Please seek immediate medical attention should you have any worsening symptoms specially fever, chills or night sweats or worsening abdominal pain. Is patient prescribed a controlled substance at d/c from ED?: No Referrals: Usama Silva MD [Primary Care Provider] - 1-2 days Hortencia Harrison MD [STAFF PHYSICIAN] - 1-2 days Time of Disposition: 18:11 - Out of Hospital Transfer - Req. Specs Out of Hospital Transfer - Requested Specifics: Other Emergency Center ([facility])
[2024-11-06 13:30] LABS: Basophils # (A) 0.04 10*3/uL (0.00-0.10); Basophils % (A) 0.5 %; Eosinophils # (A) 0.07 10*3/uL (0.04-0.35); Eosinophils % (A) 0.8 %; HCT 41.5 % (37.2-46.3); HGB 14.5 g/dL (12.0-15.0); Lymphocytes # (A) 1.04 10*3/uL (0.90-5.00); Lymphocytes % (A) 11.8 %; MCH 31.3 pg (27.0-32.0); MCHC 34.9 g/dL (32.0-37.0); MCV 89.6 fL (80.0-97.0); Monocytes # (A) 0.86 10*3/uL (0.20-1.00); Monocytes % (A) 9.7 %; Neutrophils # (A) 6.77 10*3/uL (1.80-7.70); Neutrophils % (A) 76.4 %; Platelet Count 306 10*3/uL (140-440); RBC 4.63 10*6/uL (4.10-5.20); RDW 13.4 % (11.5-14.5); WBC 8.85 10*3/uL (4.50-10.00)
--- NOTE | 2024-11-06 13:36 | XR ---
EXAMINATION TYPE: XR chest 2V DATE OF EXAM: 11/06/2024 1:28 PM COMPARISON: Chest radiographs from 07/08/2023 CLINICAL INDICATION: Female, 74 years old with history of Chest Pain; [facility] TECHNIQUE: XR chest 2V Frontal and lateral views of the chest. FINDINGS: Lungs/Pleura: There is flattening of the diaphragm with increased lucency of the lungs. No evidence o f pneumothorax, pleural effusion or focal consolidation. Pulmonary vascularity: Unremarkable. Heart/mediastinum: Cardiomediastinal silhouette is unremarkable. Musculoskeletal: No acute osseous pathology. Prior left clavicle fracture. IMPRESSION: 1. No acute cardiopulmonary disease process. 2. COPD changes. [facility], , 11/06/2024 1:34 PM
[2024-11-06 13:44] LABS: ALT 413 U/L (4-34); AST 310 U/L (14-36); African American GFR (CKD) >90 (>60 ml/min/1.73 sqM); Albumin 3.9 g/dL (3.5-5.0); Alkaline Phosphatase 587 U/L (38-126); Anion Gap 8 mmol/L; Blood Urea Nitrogen 18 mg/dL (7-17); Calcium 9.8 mg/dL (8.4-10.2); Carbon Dioxide 30 mmol/L (22-30); Chloride 98 mmol/L (98-107); Glucose 113 mg/dL (74-99); Lipase 66 U/L (23-300); Magnesium 1.8 mg/dL (1.6-2.3); Non-African American GFR(CKD) >90 (>60 ml/min/1.73 sqM); Potassium 4.3 mmol/L (3.5-5.1); Sodium 136 mmol/L (137-145); Total Protein 6.6 g/dL (6.3-8.2)
[2024-11-06 13:45] LABS: INR 0.9 (<1.2); Partial Thromboplastin Time 25.0 sec (22.0-30.0); Prothrombin Time 10.3 sec (10.0-12.5)
--- NOTE | 2024-11-06 14:47 | CT ---
EXAMINATION TYPE: CT angio thor/abd pel aorta DATE OF EXAM: 11/06/2024 2:16 PM COMPARISON: 10/22/2024 PET/CT.. CLINICAL INDICATION: Female, 74 years old with history of chest, abdominal pain, elevated d dimer. manning spectPE; PHH, catracho/chest and back pain TECHNIQUE: Noncontrast CT chest abdomen pelvis followed by CT angiogram chest abdomen pelvis. Multiple axial CT images of the chest, abdomen, and pelvis were obtained prior to and after the administration of IV co ntrast. 3-D reformats and maximum intensity projection format were performed on a separate workstatio n. . Contrast used:100 ml mL of Isovue 370 with IV Contrast, Oral contrast used: CT DLP: 323.2 mGycm, Automated exposure control for dose reduction was used. FINDINGS: ARTERIAL VASCULATURE: Ascending thoracic aorta and descending thoracic aorta are within normal limits for size. Mild fusiform ectasia of the distal infrarenal abdominal aorta up to 2.5 cm. There is no e vidence for intramural hematoma within the aorta on noncontrast imaging. Postcontrast imaging demonst rates no evidence for dissection. The major vessels of the aortic arch are patent. The major vessels of the abdominal aorta are patent. PULMONARY ARTERIAL VASCULATURE: Normal caliber. No evidence of filling defect to suggest pulmonary em bolus. VENOUS SYSTEM: Unremarkable. LUNGS/ PLEURA: Scattered nodules including left upper lung 10 mm series 411 image 57 left perihilar m easuring 26 mm. Left lower lobe lateral measuring 13 mm no focal consolidation, pneumothorax or pleur al effusion. AIRWAY: Patent and unremarkable. HEART: Size within normal limits. Moderate coronary artery calcifications present. Thickening and ca lcification of aortic valve present. MEDIASTINUM: No gross evidence of adenopathy. MUSCULOSKELETAL: Scattered osseous metastatic disease as seen on prior PET/CT. Prior fracture of the right rib 7. With incomplete fusion. No evidence of new fracture of the spine. Osseous metastatic dis ease including the sternum the spine scapula with prior fracture noted on the left. Prior left clavic le fracture. SOFT TISSUES/LYMPH NODES: Left axillary lymph nodes measuring 11 mm.r LOWER NECK: No significant findings. Abdomen: LIVER: Unremarkable GALLBLADDER AND BILE DUCTS: The gallbladder is slightly distended there is possible gallbladder wall lungs gallbladder fossa wall with the liver measuring up to 5 mm. PANCREAS: Unremarkable. SPLEEN: Unremarkable. ADRENAL GLANDS: Unremarkable. KIDNEYS AND URETERS: No evidence of hydronephrosis or renal calculus. The ureters are unremarkable. PELVIS BLADDER: Unremarkable REPRODUCTIVE: Unremarkable. ABDOMEN & PELVIS STOMACH AND BOWEL: No evidence of bowel obstruction. Scattered colonic diverticulosis. PERITONEUM/RETROPERITONEUM: No evidence of pneumoperitoneum or free fluid. MUSCULOSKELETAL: Scattered osseous metastatic disease as seen on prior PET/CT. Compression fracture t o the L4 vertebral body with complete height loss. Scattered osseous metastatic disease of the spine as seen on prior exam. No evidence of new fracture of the spine. LYMPH NODES: No gross evidence for lymphadenopathy. SOFT TISSUE/ABDOMINAL WALL: Unremarkable IMPRESSION: 1. No evidence for aortic dissection or occlusion. 2. Distended gallbladder with possible wall thickening correlate for upper abdominal pain. 3. Mild ectasia of the infrarenal abdominal aorta. 4. Scattered pulmonary nodules concerning for malignancy as seen on prior PET/CT 10/22/2024. 5. Moderate to severe atherosclerosis of the arterial vasculature. 6. Moderate coronary artery atherosclerosis. 7. Mild to moderate aortic valve calcifications. 8. Colonic diverticulosis. [facility], , 11/06/2024 2:44 PM
[2024-11-06] MEDS: LIDOCAINE VISCOUS 2% 15 ML CUP PO ONE (14:59)
[2024-11-06] MEDS: MAG HYDROX/AL HYDROX/SIMETH 30 ML CUP PO PRN (14:59)
[2024-11-06] MEDS: HYOSCYAMINE SULFATE 0.125 MG TAB SL STA (15:01)
--- NOTE | 2024-11-06 15:51 | US ---
EXAMINATION TYPE: US abdomen limited DATE OF EXAM: 11/06/2024 COMPARISON: 11/06/2024 CLINICAL INDICATION: Female, 74 years old with history of epigastric and ruq pain; RUQ pain TECHNIQUE: Grayscale and color Doppler imaging of the right upper quadrant was performed. FINDINGS: EXAM MEASUREMENTS: Liver Length: 14.6 cm Gallbladder Wall: 0.4 cm CBD: 0.9 cm Right Kidney: 10.0 x 4.5 x 3.8 cm Pancreas: Head and tail not well seen. Main pancreatic duct= 3.0 mm Liver: Heterogenous. Intrahepatic biliary dilatation. Gallbladder: Wall thickening. Sludge. Evidence for sonographic Negrete's sign: neg CBD: wnl Right Kidney: No hydronephrosis or masses seen IMPRESSION: Tumefactive sludge within the gallbladder. No evidence for wall thickening or evidence for acute chol ecystitis. [facility], , 11/06/2024 3:49 PM
[2024-11-06] MEDS ORDERED: HYDROcodone/APAP 10-325MG 1 EACH TAB PO PRN (20:26)
[2024-11-06 20:48] VITALS: BP 166/91; PULSE 75; RESP 19; TEMP 97.6
== END 2024-11-06 21:10 | disposition other institution (70) ==
LOC: EC 12:49
DX: K82.8 Other specified diseases of gallbladder (principal); F17.200 Nicotine dependence, unspecified, uncomplicated; Z91.018 Allergy to other foods; Z80.0 Family history of malignant neoplasm of digestive organs
CPT/HCPCS: 99285; 36415; 93005; 85379; 80053; 83605; 83690; 83735; 84484; 85025; 85610; 85730; 71046; 76705; 71275; 74174; Q9967

== ENCOUNTER 2024-11-14 20:01 | Observation (INO) | payer MEDICARE ==
--- NOTE | 2024-11-14 21:20 | ED ---
Recheck HPI - General Chief Complaint: Recheck/Abnormal Lab/Rx Stated Complaint: bp dropped Time Seen by Provider: 11/14/24 20:54 Source: patient, RN notes reviewed Mode of arrival: ambulatory Limitations: no limitations - History of Present Illness Initial Comments: This is a 74-year-old female who presents to the emergency department for hypotension. States that she usually has elevated blood pressure and checks it every day. When she checked her blood pressure today she found to be in the 80s systolically. States that she also feels very weak. She had her gallbladder removed 5 days ago and states that she is healing well from this. Denies any abdominal pain, nausea, or vomiting. Also denies any chest pain or shortness of breath. She does also note that she significantly reduced her cigarette consumption over the last few days. She used to smoke 1.5 packs daily and has not even smoked a whole pack in the last 3 days and wonders if that may also be contributing to this. - Related Data Home Medications Medication Instructions Recorded Confirmed amLODIPine BESYLATE/BENAZEPRIL 1 cap PO DAILY 04/09/23 11/06/24 [Lotrel 10-20 mg Capsule] HYDROcodone/APAP 10-325MG [[place] 1 tab PO Q6HR PRN 07/02/23 11/06/24 10-325] fentaNYL 25MCG/HR PATCH [[place]ages[place] 1 patch TRANSDERM Q72H 11/06/24 11/06/24 25MCG/HR] Allergies Allergy/AdvReac Type Severity Reaction Status Date / Time almond oil Allergy Rash/Hives Verified 11/06/24 16:33 Review of Systems ROS Statement: Those systems with pertinent positive or pertinent negative responses have been documented in the HPI. ROS Other: All systems not noted in ROS Statement are negative. Past Medical History Past Medical History: Cancer, Hypertension Additional Past Medical History / Comment(s): ENDOMETRIOSIS, BASAL CELL CARCINOMA LEFT ANKLE 2021 History of Any Multi-Drug Resistant Organisms: None Reported Past Surgical History: Hernia Repair, Tubal Ligation Additional Past Surgical History / Comment(s): CYST REMOVAL ON VOCAL CORDS Past Anesthesia/Blood Transfusion Reactions: No Reported Reaction Past Psychological History: No Psychological Hx Reported Smoking Status: Current every day smoker Past Alcohol Use History: Rare Past Drug Use History: None Reported - Past Family History Sister(s) Family Medical History: Cancer Additional Family Medical History / Comment(s): colon cancer, epiglottis cancer General Exam Limitations: no limitations General appearance: alert, in no apparent distress Head exam: Present: atraumatic, normocephalic, normal inspection Respiratory exam: Present: normal lung sounds bilaterally. Absent: respiratory distress, wheezes, rales, rhonchi, stridor Cardiovascular Exam: Present: regular rate, normal rhythm GI/Abdominal exam: Present: soft, other (Abdominal incisions are clean, dry, and intact. There is no erythema, induration, or drainage.). Absent: distended, tenderness Neurological exam: Present: alert, oriented X3, CN II-XII intact Psychiatric exam: Present: normal affect, normal mood Skin exam: Present: warm, dry, intact, normal color. Absent: rash Course Vital Signs 11/14/24 11/14/24 20:44 23:05 Temperature 98.2 F Pulse Rate 93 76 Respiratory 18 18 Rate Blood Pressure 94/68 113/45 O2 Sat by Pulse 95 98 Oximetry Medical Decision Making - Medical Decision Making This is a 74-year-old female who presents to the emergency department for hypotension. Was pt. sent in by a medical professional or institution? @ -No Did you speak to anyone other than the patient for history? @ -No Did you review nursing and triage notes? @ -Yes, and I agree, it is accurate with regards to the patient's symptoms. Were old charts reviewed? @ -No Differential Diagnosis? @ -Infection, blood loss, dehydration, medication issue, this is not meant to be an all-inclusive list. EKG interpreted by me (3pts min.)? @ -EKG interpreted by me demonstrating the following: Sinus rhythm. Ventricular rate 73 bpm, GA interval 193 ms, QRS duration 92 ms, QTc 410 ms. X-rays interpreted by me (1pt min.)? @ -Pending CT interpreted by me (1pt min.)? @ -Not obtained U/S interpreted by me (1pt. min.)? @ -Pending What testing was considered but not performed? (CT, X-rays, U/S, labs)? Why? @ -None What meds were considered but not given? Why? @ -None Did you discuss the management of the patient with other professionals? @ -No Did you reconcile home meds? @ -No Was smoking cessation discussed for >3mins.? @ -No Was critical care preformed (if so, how long)? @ -No Were there social determinants of health that impacted care today? How? (Homelessness, low income, unemployed, alcoholism, drug addiction, transportation, low edu. Level, literacy, decrease access to med. care, senior care, rehab)? @ -No Was there de-escalation of care discussed even if they declined? (Discuss DNR or withdrawal of care, Hospice)? @ -No What co-morbidities impacted this encounter? (DM, HTN, Smoking, COPD, CAD, Cancer, CVA, Hep., AIDS, mental health diagnosis, sleep apnea, morbid obesity)? @ -HTN Was patient admitted / discharged? @ -Admitted. Lab work demonstrates leukocytosis with a white blood cell count of 14.59. She is also hyponatremic with a sodium of 126. Additionally, she is noted to have an ALIYA. BUN is 35, creatinine 2.07, and eGFR 23. 8 days ago her renal function was within normal limits. She does have elevated LFTs, which have improved significantly compared with prior visit and continue to trend down following recent cholecystectomy. Her abdomen was nontender and her incisions were clean, dry, and intact. She does note that she was taking a lot of laxatives due to constipation from opiates. This did result in quite a bit of diarrhea and she wonders if that may be contributing to the renal insufficiency. Patient admitted to medicine for the hyponatremia and ALIYA. She was initially given 2 L of normal saline and started on maintenance fluids. Renal ultrasound and urinalysis ordered with results pending at the time of admission. Chest x- ray results also pending at the time of admission. Nephrology consulted regarding ALIYA and hyponatremia. Hem/onc consulted as well as patient is established with them for cancer treatment. Case discussed with ED attending Dr. Wren. Undiagnosed new problem with uncertain prognosis? @ -None Drug Therapy requiring intensive monitoring for toxicity (Heparin, Nitro, Insulin, Cardizem)? @ -None Were any procedures done? @ -None Diagnosis/symptom? @ -ALIYA, hyponatremia Acute, or Chronic, or Acute on Chronic? @ -Acute Uncomplicated (without systemic symptoms) or Complicated (systemic symptoms)? @ -Complicated Side effects of treatment? @ -None Exacerbation, Progression, or Severe Exacerbation] @ -Not applicable Poses a threat to life or bodily function? @ -Yes, can lead to worsening electrolyte abnormalities - Lab Data Result diagrams: 11/14/24 20:17 11/14/24 20:17 Lab Results 11/14/24 11/14/24 11/14/24 Range/Units 20:17 20:17 20:17 WBC 14.59 H (4.50-10.00) 10*3/uL RBC 4.38 (4.10-5.20) 10*6/uL Hgb 13.7 (12.0-15.0) g/dL Hct 38.6 (37.2-46.3) % MCV 88.1 (80.0-97.0) fL MCH 31.3 (27.0-32.0) pg MCHC 35.5 (32.0-37.0) g/dL Plt Count 298 (140-440) 10*3/uL MPV 10.2 (9.5-12.2) fL Immature Gran % (Auto) 1.4 % Immature Gran # 0.21 H (0.00-0.04) 10*3/uL Sodium 126 L (137-145) mmol/L Potassium 3.7 (3.5-5.1) mmol/L Chloride 88 L (98-107) mmol/L Carbon Dioxide 27 (22-30) mmol/L Anion Gap 11 mmol/L BUN 35 H (7-17) mg/dL Creatinine 2.07 H (0.52-1.04) mg/dL Est GFR (CKD-EPI)AfAm 27 (>60 ml/min/1.73 sqM) Est GFR (CKD-EPI)NonAf 23 (>60 ml/min/1.73 sqM) Glucose 121 H (74-99) mg/dL Plasma Lactic Acid Maykel (0.7-2.0) mmol/L Calcium 8.8 (8.4-10.2) mg/dL Magnesium 1.6 (1.6-2.3) mg/dL Total Bilirubin 0.9 (0.2-1.3) mg/dL AST 42 H (14-36) U/L ALT 66 H (4-34) U/L Alkaline Phosphatase 311 H (38-126) U/L Total Protein 5.8 L (6.3-8.2) g/dL Albumin 3.2 L (3.5-5.0) g/dL Lipase 15 L (23-300) U/L 11/14/24 Range/Units 22:57 WBC (4.50-10.00) 10*3/uL RBC (4.10-5.20) 10*6/uL Hgb (12.0-15.0) g/dL Hct (37.2-46.3) % MCV (80.0-97.0) fL MCH (27.0-32.0) pg MCHC (32.0-37.0) g/dL Plt Count (140-440) 10*3/uL MPV (9.5-12.2) fL Immature Gran % (Auto) % Immature Gran # (0.00-0.04) 10*3/uL Sodium (137-145) mmol/L Potassium (3.5-5.1) mmol/L Chloride (98-107) mmol/L Carbon Dioxide (22-30) mmol/L Anion Gap mmol/L BUN (7-17) mg/dL Creatinine (0.52-1.04) mg/dL Est GFR (CKD-EPI)AfAm (>60 ml/min/1.73 sqM) Est GFR (CKD-EPI)NonAf (>60 ml/min/1.73 sqM) Glucose (74-99) mg/dL Plasma Lactic Acid Maykel 1.2 (0.7-2.0) mmol/L Calcium (8.4-10.2) mg/dL Magnesium (1.6-2.3) mg/dL Total Bilirubin (0.2-1.3) mg/dL AST (14-36) U/L ALT (4-34) U/L Alkaline Phosphatase (38-126) U/L Total Protein (6.3-8.2) g/dL Albumin (3.5-5.0) g/dL Lipase (23-300) U/L - Radiology Data Radiology results: report reviewed, image reviewed Disposition Clinical Impression: ALIYA (acute kidney injury), Hyponatremia Disposition: ADMITTED IP TO THIS HOSP
[2024-11-14] MEDS: SODIUM CHLORIDE 0.9% 1,000 ML IV ONE ×2 (22:49→23:13)
[2024-11-14 22:51] LABS: ALT 66 U/L (4-34); African American GFR (CKD) 27 (>60 ml/min/1.73 sqM); Albumin 3.2 g/dL (3.5-5.0); Anion Gap 11 mmol/L; Blood Urea Nitrogen 35 mg/dL (7-17); Calcium 8.8 mg/dL (8.4-10.2); Carbon Dioxide 27 mmol/L (22-30); Chloride 88 mmol/L (98-107); Glucose 121 mg/dL (74-99); Non-African American GFR(CKD) 23 (>60 ml/min/1.73 sqM); Sodium 126 mmol/L (137-145); Total Protein 5.8 g/dL (6.3-8.2)
[2024-11-14 22:58] LABS: AST 42 U/L (14-36); Alkaline Phosphatase 311 U/L (38-126); Magnesium 1.6 mg/dL (1.6-2.3); Potassium 3.7 mmol/L (3.5-5.1)
[2024-11-14 23:01] LABS: HCT 38.6 % (37.2-46.3); HGB 13.7 g/dL (12.0-15.0); MCH 31.3 pg (27.0-32.0); MCHC 35.5 g/dL (32.0-37.0); MCV 88.1 fL (80.0-97.0); Platelet Count 298 10*3/uL (140-440); RBC 4.38 10*6/uL (4.10-5.20); RDW 13.2 % (11.5-14.5); WBC 14.59 10*3/uL (4.50-10.00)
[2024-11-14] MEDS ORDERED: ACETAMINOPHEN TAB 325 MG TAB PO PRN (23:19)
[2024-11-14] MEDS ORDERED: NALOXONE 0.4 MG/ML 1 ML VIAL IV PRN (23:19)
[2024-11-14 23:58] LABS: Amorphous Sediment,Urine Rare /hpf; Bacteria,Urine Rare /hpf; Bilirubin,Urine Negative (Negative); Blood,Urine Small (Negative); Color,Urine Yellow; Glucose,Urine (UA) Negative (Negative); Hyaline Casts,Urine 51 /lpf (0-2); Ketones,Urine Negative (Negative); Leukocyte Esterase,Urine Negative (Negative); Mucus,Urine Rare /hpf; Nitrite,Urine Negative (Negative); PH, Urine 5.5 (5.0-8.0); Protein,Urine 1+ (Negative); RBC,Urine 3 /hpf (0-5); Specific Gravity,Urine 1.013 (1.001-1.035); Squamous Epithelial Cell,Urine 5 /hpf (0-4); Urobilinogen,Urine <2.0 mg/dL (<2.0); WBC,Urine 5 /hpf (0-5)
[2024-11-15 00:24] LABS: Eosinophils # (M) 0.29 k/uL (0-0.7); Lymphocytes # (M) 0.73 k/uL (1.0-4.8); Monocytes # (M) 0.73 k/uL (0-1.0); Neutrophils # (M) 12.83 k/uL (1.3-7.7); Neutrophils % (M) 74 %; Total Cells Counted 100
[2024-11-15] MEDS: SODIUM CHLORIDE 0.9% 1,000 ML IV SCH (00:33)
--- NOTE | 2024-11-15 01:27 | US ---
EXAM: US Retroperitoneal Limited, Renal CLINICAL HISTORY: ITS.REASON US Reason: Renal failure TECHNIQUE: Real-time limited ultrasound of the retroperitoneum with image documentation. COMPARISON: No previous studies. FINDINGS: Right kidney: Increased echogenicity of the kidneys compatible medical renal disease. The right kidney measures 10.1 x 4.2 x 5.6 cm. No renal calculus or hydronephrosis. Left kidney: Left kidney measures 10.5 x 4.8 x 4.5 cm. Bladder: Prevoid bladder is unremarkable. IMPRESSION: 1. Increased echogenicity of both kidneys compatible medical renal disease. 2. No renal calculus or hydronephrosis.
[2024-11-15] MEDS: HYDROcodone/APAP 5-325MG 1 EACH TAB PO PRN (08:47)
[2024-11-15 11:53] LABS: African American GFR (CKD) >90 (>60 ml/min/1.73 sqM); Anion Gap 4 mmol/L; Blood Urea Nitrogen 19 mg/dL (7-17); Calcium 8.3 mg/dL (8.4-10.2); Carbon Dioxide 29 mmol/L (22-30); Chloride 98 mmol/L (98-107); Glucose 121 mg/dL (74-99); Non-African American GFR(CKD) 88 (>60 ml/min/1.73 sqM); Potassium 3.0 mmol/L (3.5-5.1); Sodium 131 mmol/L (137-145)
--- NOTE | 2024-11-15 12:41 | P.NPCON ---
History of Present Illness - Reason for Consult Consult date: 11/15/24 - Chief Complaint Low BP - History of Present Illness This is a 74-year-old female who presents to the emergency department for hypotension. States that she usually has elevated blood pressure and checks it every day. When she checked her blood pressure today she found to be in the 80s systolically. States that she also feels very weak. She had her gallbladder removed 5 days ago and states that she is healing well from this. Denies any abdominal pain, nausea, or vomiting. BP improved today on exam. Denies any new complaints. General: No acute distress. LUNGS: No audible rhonchi or wheezes. HEART: Rate and Rhythm are regular. ABDOMEN: Nontender. EXTREMITITES: No edema. 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 History of Any Multi-Drug Resistant Organisms: None Reported Past Surgical History: Cholecystectomy, Hernia Repair, Tubal Ligation Additional Past Surgical History / Comment(s): CYST REMOVAL ON VOCAL CORDS Past Anesthesia/Blood Transfusion Reactions: No Reported Reaction Past Psychological History: No Psychological Hx Reported Smoking Status: Current every day smoker Past Alcohol Use History: Rare Past Drug Use History: None Reported - Past Family History Sister(s) Family Medical History: Cancer Additional Family Medical History / Comment(s): colon cancer, epiglottis cancer Medications and Allergies Home Medications Medication Instructions Recorded Confirmed Type amLODIPine BESYLATE/BENAZEPRIL 1 cap PO DAILY 04/09/23 11/15/24 History [Lotrel 10-20 mg Capsule] HYDROcodone/APAP 10-325MG [[place] 1 tab PO Q6HR PRN 07/02/23 11/15/24 History 10-325] fentaNYL 25MCG/HR PATCH [Durages[place] 1 patch TRANSDERM Q72H 11/06/24 11/15/24 History 25MCG/HR] Allergies Allergy/AdvReac Type Severity Reaction Status Date / Time almond oil Allergy Rash/Hives Verified 11/06/24 16:33 Physical Exam Vitals: Vital Signs Temp Pulse Pulse Resp BP BP Pulse Ox 11/15/24 08:00 98.3 F 87 18 134/85 96 11/15/24 03:43 97.9 F 85 18 135/109 93 L 11/15/24 01:42 98.5 F 77 18 104/69 97 11/15/24 00:06 78 18 117/65 98 11/14/24 23:05 76 18 113/45 98 11/14/24 20:44 98.2 F 93 18 94/68 95 Intake and Output 11/14/24 11/15/24 11/15/24 22:59 06:59 14:59 Intake Total 470 Balance 470 Intake: Intake, IV Titration 200 Amount Sodium Chloride 0.9% 1, 200 000 ml @ 75 mls/hr IV . [id number] KATHARINE Rx#:[id number] Oral 270 Other: # Voids 1 Weight 42.093 kg 42.093 kg Results - Lab Results Most recent lab results Calcium 8.8 mg/dL (8.4-10.2) 11/14/24 20:17 Magnesium 1.6 mg/dL (1.6-2.3) 11/14/24 20:17 11/14/24 20:17 11/15/24 11:04 Assessment and Plan Assessment: 1. Non-oliguric ALIYA 2/2 ATN from hypotension and ACEi use. Baseline creatinine 0.6, presented 2.1 now 0.67 with IVF. UA showed many hyaline casts. Renal US shows medical renal disease and no hydronephrosis. 2. Hyponatremia suspect hypovolemic. Na 126 on presentation, improving to 131 with IVF 3. Hypotension with history of hypertension 4. Metastatic adenocarcinoma of the lung Plan: Check urine studies Daily BMP Continue IVF for now Hold BP medications
[2024-11-15] MEDS: POTASSIUM CHLORIDE ER 20 MEQ TAB.ER PO SCH (12:49)
--- NOTE | 2024-11-15 14:11 | XR ---
EXAMINATION TYPE: XR chest 2V DATE OF EXAM: 11/14/2024 11:00 PM COMPARISON: Chest radiographs from 11/06/2024 CLINICAL INDICATION: Female, 74 years old with history of Weakness; [facility] TECHNIQUE: XR chest 2V Frontal and lateral views of the chest. FINDINGS: Lungs/Pleura: There is no evidence of pleural effusion, focal consolidation, or pneumothorax. Pulmonary vascularity: Unremarkable. Heart/mediastinum: Cardiomediastinal silhouette is unremarkable. Musculoskeletal: No acute osseous pathology. Other findings: Right lateral chest wall subcutaneous lucencies present not seen on prior not seen on CT. Lines/Tubes: IMPRESSION: 1. Questionable Subcutaneous emphysema in the right lateral chest , not seen on prior. Consider CT c hest for further evaluation. No pneumothorax is visualized. 2. Remote right rib deformities. 11/15/2024 2:08 PM,11/14/2024 11:00 PM,Giselle Brewster,XR chest 2V,[id number] [facility], , 11/15/2024 2:08 PM
--- NOTE | 2024-11-15 18:40 | P.CONS ---
History of Present Illness - Reason for Consult Consult date: 11/15/24 lung cancer Requesting physician: Nieves Chamberlain - Chief Complaint hypotension - History of Present Illness Ms. Kahn is a 74-year-old woman with a past medical history significant for hypertension, nicotine dependence and recent diagnosis of metastatic adenocarcinoma of the lung. She is a patient of Dr. Anca Shaw. She noted having increased discomfort at the left clavicle and right chest wall approximately 3 months ago. She had CT imaging at [facility] and noted concern for peripheral nodules and was recommended to have PET/CT. This was performed on 03/29/2023, which noted FDG avidity in the right and left lymph nodes of the neck along with a left subpectoral lymph node. She had right upper lobe nodule measuring 2.1 cm in the largest dimension that was minimally FDG avid and was semisolid. An additional medial right upper lobe lesion measuring 1.1 cm and SUV is 7.1. There was a left upper lobe lesion measuring 1.3 cm with an SUV of 10.2 along with 2 left lower lobe lesions measuring 1.3 and 1.6 cm that were also minimally FDG avid. She was also noted to have mediastinal and bilateral hilar lymphadenopathy. Additionally, she had 2 left adrenal and 1 right adrenal gland nodules that were all FDG avid in addition to potential lesion at the right hepatic dome. Multiple bony metastasis were noted, including in the left distal clavicle and right sixth rib, where she has the most pain. Biopsy of the left neck lymph node on 04/17/2023 was consistent with metastatic really differentiated non-small cell lung cancer consistent with pulmonary adenocarcinoma (IHC positive CK7, TTF-1, Napsin A, and weakly ER positive. It was negative for CK20, CDX2, p40, and GATA3). Brain MRI noted 4 subcentimeter brain metastases. After establishing with radiation oncology, she underwent 5 fractions of SRS to the brain lesions along with palliative radiation to the left clavicle and right chest wall. Circulating tumor DNA and NGS noted KRAS G13C and TP53 (E285G) mutations with high tumor mutation burden and PD-L1 of 90%. Based on the workup above, we discussed treatment with single agent pembrolizumab in addition to Zometa 4 mg IV every 3 months. Zometa along with pembrolizumab was initiated on 06/21/2023. Repeat brain MRI on 08/19/2023 noted treatment response to SRS. PET/CT performed on 09/05/2023 noted overall partial response. PET/CT performed on 12/27/2023 notes continued overall partial response to treatment. Brain MRI on 02/11/2024 noted 5 small enhancing foci of brain metastases with the largest being 1 cm at the right frontal lobe and 6 mm in the medial posterior temporal lobe compared to November 2023. She did receive 5 fractions of SRS to these lesions from 03/12/2024 through 03/18/2024. PET/CT on 04/09/2024 noted mild increase in FDG avidity in the left axilla and mediastinal/right hilar lymph nodes, pulmonary nodules in the left upper lobe, and osseous lesions. Repeat PET/CT on 06/11/2024 noted stable disease with right axillary lymph nodes that appeared to be new compared to prior PET/CT Most recent brain MRI on 08/24/2024 noted dural thickening as well as enhancing left parietal and right frontal lesions compared to prior brain MRI concerning for possible disease progression.She received 1 fraction of SRS to the left parietal lobe lesion on 09/23/2024 without any complications. Repeat PET/CT on 10/22/2024 revealed ,mildly enlarged left upper lobe and left anterior pulmonary nodule with increased FDG avidity and new left perihilar lung lesion and left axillary lymph node concerning for disease progression. She was on Keytruda once every 6 weeks with Zometa 4 mg IV once every 3 months, but last received blayne atment on 08/18/2024 due to difficulties with insurance. We have applied for free drug, which has been obtained and will resume treatment as the areas of disease progression noted on PET/CT grew while she was off of Keytruda. Restarted treatment on 11/04/24. Tolerated treatment well Patient presented to the emergency room with complaints of low blood pressure. Patient states she has been having issues with hypertension and reports checking her blood pressure 3-4 times daily. She began to notice systolic pressures were in the 80s at which time she presented to emergency room for further evaluation. Also has been reporting ongoing upper abdominal pain which has been ongoing for the last couple weeks. Patient did undergo cholecystectomy last week. She states abdominal pain has been slowly improving. BP on admit was 94/68. She was also noted to be dehydrated with BUN 35, with acute kidney injury, creatinine 2.07, GFR 23. Hyponatremic with sodium 126. Improved today to 131. Patient did receive fluid boluses on admit and continues on continuous hydration. Kidney function improved today, creatinine 0.67, GFR 88. Bilirubin 0.9, with transaminitis noted. Lipase normal. WBC 14.5, hemoglobin 13.7, platelets 298,000. 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 History of Any Multi-Drug Resistant Organisms: None Reported Past Surgical History: Cholecystectomy, Hernia Repair, Tubal Ligation Additional Past Surgical History / Comment(s): CYST REMOVAL ON VOCAL CORDS Past Anesthesia/Blood Transfusion Reactions: No Reported Reaction Past Psychological History: No Psychological Hx Reported Smoking Status: Current every day smoker Past Alcohol Use History: Rare Past Drug Use History: None Reported - Past Family History Sister(s) Family Medical History: Cancer Additional Family Medical History / Comment(s): colon cancer, epiglottis cancer Medications and Allergies Home Medications Medication Instructions Recorded Confirmed Type amLODIPine BESYLATE/BENAZEPRIL 1 cap PO DAILY 04/09/23 11/15/24 History [Lotrel 10-20 mg Capsule] HYDROcodone/APAP 10-325MG [[place] 1 tab PO Q6HR PRN 07/02/23 11/15/24 History 10-325] fentaNYL 25MCG/HR PATCH [Duragesic 1 patch TRANSDERM Q72H 11/06/24 11/15/24 History 25MCG/HR] Allergies Allergy/AdvReac Type Severity Reaction Status Date / Time almond oil Allergy Rash/Hives Verified 11/15/24 13:45 Physical Exam Vitals: Vital Signs Temp Pulse Pulse Resp BP BP Pulse Ox 11/15/24 08:00 98.3 F 87 18 134/85 96 11/15/24 03:43 97.9 F 85 18 135/109 93 L 11/15/24 01:42 98.5 F 77 18 104/69 97 11/15/24 00:06 78 18 117/65 98 11/14/24 23:05 76 18 113/45 98 11/14/24 20:44 98.2 F 93 18 94/68 95 Intake and Output 11/14/24 11/15/24 11/15/24 22:59 06:59 14:59 Intake Total 470 Balance 470 Intake: Intake, IV Titration 200 Amount Sodium Chloride 0.9% 1, 200 000 ml @ 75 mls/hr IV . [id number] [facility] Rx#:[id number] Oral 270 Other: # Voids 1 Weight 42.093 kg 42.093 kg - Constitutional General appearance: no acute distress, thin - EENT Eyes: anicteric sclerae, EOMI ENT: hearing grossly normal - Respiratory breathing is even and unlabored - Cardiovascular skin warm and dry - Gastrointestinal General gastrointestinal: soft - Integumentary Integumentary: no cyanotic, no jaundiced - Neurologic Neurologic: CNII-XII intact - Psychiatric Psychiatric: A&O x's 3 Results CBC & Chem 7: 11/14/24 20:17 11/15/24 11:04 Labs: Abnormal Lab Results - Last 24 Hours (Table) 11/14/24 11/14/24 11/14/24 Range/Units 20:17 20:17 20:17 WBC 14.59 H (4.50-10.00) 10*3/uL Immature Gran # 0.21 H (0.00-0.04) 10*3/uL Neutrophils # (Manual) 12.83 H (1.3-7.7) k/uL Lymphocytes # (Manual) 0.73 L (1.0-4.8) k/uL Sodium 126 L (137-145) mmol/L Chloride 88 L (98-107) mmol/L BUN 35 H (7-17) mg/dL Creatinine 2.07 H (0.52-1.04) mg/dL Glucose 121 H (74-99) mg/dL AST 42 H (14-36) U/L ALT 66 H (4-34) U/L Alkaline Phosphatase 311 H (38-126) U/L Total Protein 5.8 L (6.3-8.2) g/dL Albumin 3.2 L (3.5-5.0) g/dL Lipase 15 L (23-300) U/L Urine Appearance (Clear) Urine Protein (Negative) Urine Blood (Negative) Ur Squamous Epith Cells (0-4) /hpf Amorphous Sediment (None) /hpf Urine Bacteria (None) /hpf Hyaline Casts (0-2) /lpf Urine Mucus (None) /hpf 11/14/24 Range/Units 23:38 WBC (4.50-10.00) 10*3/uL Immature Gran # (0.00-0.04) 10*3/uL Neutrophils # (Manual) (1.3-7.7) k/uL Lymphocytes # (Manual) (1.0-4.8) k/uL Sodium (137-145) mmol/L Chloride (98-107) mmol/L BUN (7-17) mg/dL Creatinine (0.52-1.04) mg/dL Glucose (74-99) mg/dL AST (14-36) U/L ALT (4-34) U/L Alkaline Phosphatase (38-126) U/L Total Protein (6.3-8.2) g/dL Albumin (3.5-5.0) g/dL Lipase (23-300) U/L Urine Appearance Cloudy H (Clear) Urine Protein 1+ H (Negative) Urine Blood Small H (Negative) Ur Squamous Epith Cells 5 H (0-4) /hpf Amorphous Sediment Rare H (None) /hpf Urine Bacteria Rare H (None) /hpf Hyaline Casts 51 H (0-2) /lpf Urine Mucus Rare H (None) /hpf US - abdomen: report reviewed Assessment and Plan (1) Lung cancer Current Visit: Yes Status: Acute Code(s): C34.90 - MALIGNANT NEOPLASM OF UNSP PART OF UNSP BRONCHUS OR LUNG SNOMED Code(s): 990088944 (2) ALIYA (acute kidney injury) Current Visit: Yes Status: Acute Code(s): N17.9 - ACUTE KIDNEY FAILURE, UNSPECIFIED SNOMED Code(s): 49933859 (3) Hyponatremia Current Visit: Yes Status: Acute Code(s): E87.1 - HYPO-OSMOLALITY AND HYPONATREMIA SNOMED Code(s): 62796904 Plan: Weakness, hypotension, ALIYA, hyponatremia: Presented to the emergency room with complaints of low blood pressure and weakness. Patient states she has been having issues with hypertension and reports checking her blood pressure 3-4 times daily. She began to notice systolic pressures were in the 80s at which time she presented to emergency room for further evaluation. Of note patient did undergo cholecystectomy last week. -On admit, labs showed BUN 35, with acute kidney injury, creatinine 2.07, GFR 23. Hyponatremic with sodium 126. Improved today to 131. Patient did receive fluid boluses on admit and continues on continuous hydration with improvement in blood pressure and kidney function. Today, creatinine 0.67, GFR 88. -Nephrology following -Pt had tolerated immunotherapy well in the past. Hypotension likely r/t dehydration, however, will obtain cortisol and thyroid studies to r/o IO induced adrenal insufficiency. Labs obtained in clinic on 11/04, showed baseline cortisol 12.9, TSH 2.4 Metastatic lung adenocarcnioma: -Oncology history as dictated in the HPI -Recently restarted treatment with Keytruda on 11/04/24 -Will plan to continue on keytruda with repeat PET CT after 3 cycles
[2024-11-16] MEDS: MORPHINE SULFATE 4 MG/ML SYRINGE IV PRN (01:58)
--- NOTE | 2024-11-16 06:00 | P.HPIM ---
History of Present Illness This is a pleasant 74 years old female with past medical history of multiple problems Presents initially because of hypotension blood pressure was 85/64 on admission. Patient had recent cholecystectomy about 5 days ago through a laparoscopic procedure with wound healing and closed. She had the procedure done at [facility]. She was transferred from this facility at that time from the emergency room to the emergency room because there was no GI coverage at that time. Patient said that she keeps checking her blood pressure frequently and noticed that it was low as above She has some epigastric pain and tenderness but this got better after her cholecystectomy Also complains from right groin pain No vomiting appetite is good No dysuria urgency no chest pain or dyspnea no headache dizziness weakness numbness She smokes about half pack per day and she wants to quit she declines nicotine patch she smokes weed For the last 2 days he she had some diarrhea all days for the last 2 to 3 days Also complaining from right leg pain thigh pain but this is a chronic for 2 years Currently blood pressure improved 130/85 patient with no fever. She has some leukocytosis at 14.5, sodium 126 creatinine 2.0. Liver enzymes mil dly elevated Ultrasound of the abdomen showing enlargement of both kidney enhancement of both kidney indicative of medical renal disease there is no hydronephrosis EKG shows sinus rhythm at [address]-T changes. Chest x-ray showed no acute cardiopulmonary process On admission Norvasc benazepril were held dose of 10-20 mg Currently she is on normal saline Review of Systems Review of systems CONSTITUTIONAL: No fever, no malaise, no fatigue. HEENT: No recent visual problems or hearing problems. Denied any sore throat. CARDIOVASCULAR: No orthopnea, PND, no palpitations, no syncope. PULMONARY: No shortness of breath, no cough, no hemoptysis. GASTROINTESTINAL: No diarrhea, no nausea, no vomiting, no abdominal pain. Normoactive bowel sounds. NEUROLOGICAL: No headaches, no weakness, no numbness. HEMATOLOGICAL: Denies any bleeding or petechiae. GENITOURINARY: Denies any burning micturition, frequency, or urgency. MUSCULOSKELETAL/RHEUMATOLOGICAL: Denies any joint pain, swelling, or any muscle pain. ENDOCRINE: Denies any polyuria or polydipsia. 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 History of Any Multi-Drug Resistant Organisms: None Reported Past Surgical History: Cholecystectomy, Hernia Repair, Tubal Ligation Additional Past Surgical History / Comment(s): CYST REMOVAL ON VOCAL CORDS Past Anesthesia/Blood Transfusion Reactions: No Reported Reaction Past Psychological History: No Psychological Hx Reported Smoking Status: Current every day smoker Past Alcohol Use History: Rare Past Drug Use History: None Reported - Past Family History Sister(s) Family Medical History: Cancer Additional Family Medical History / Comment(s): colon cancer, epiglottis cancer Medications and Allergies Home Medications Medication Instructions Recorded Confirmed Type amLODIPine BESYLATE/BENAZEPRIL 1 cap PO DAILY 04/09/23 11/15/24 History [Lotrel 10-20 mg Capsule] HYDROcodone/APAP 10-325MG [[place] 1 tab PO Q6HR PRN 07/02/23 11/15/24 History 10-325] fentaNYL 25MCG/HR PATCH [Duragesic 1 patch TRANSDERM Q72H 11/06/24 11/15/24 History 25MCG/HR] Allergies Allergy/AdvReac Type Severity Reaction Status Date / Time almond oil Allergy Rash/Hives Verified 11/15/24 13:45 Physical Exam Vitals: Vital Signs Temp Pulse Pulse Resp BP BP Pulse Ox 11/15/24 08:00 98.3 F 87 18 134/85 96 11/15/24 03:43 97.9 F 85 18 135/109 93 L 11/15/24 01:42 98.5 F 77 18 104/69 97 11/15/24 00:06 78 18 117/65 98 11/14/24 23:05 76 18 113/45 98 11/14/24 20:44 98.2 F 93 18 94/68 95 Intake and Output 11/14/24 11/15/24 11/15/24 22:59 06:59 14:59 Intake Total 470 Balance 470 Intake: Intake, IV Titration 200 Amount Sodium Chloride 0.9% 1, 200 000 ml @ 75 mls/hr IV . [id number] [facility] Rx#:[id number] Oral 270 Other: # Voids 1 Weight 42.093 kg 42.093 kg GENERAL: The patient is alert and oriented x3, not in any acute distress. Well developed, well nourished. HEENT: Pupils are round and equally reacting to light. EOMI. No scleral icterus. No conjunctival pallor. Normocephalic, atraumatic. No pharyngeal erythema. No thyromegaly. CARDIOVASCULAR: S1 and S2 present. No murmurs, rubs, or gallops. PULMONARY: Chest is clear to auscultation, no wheezing , no crackles. ABDOMEN: Soft, nontender, nondistended, normoactive bowel sounds. No palpable organomegaly. MUSCULOSKELETAL: No joint swelling or deformity. EXTREMITIES: No cyanosis, clubbing, or pedal edema. NEUROLOGICAL: Gross neurological examination did not reveal any focal deficits. SKIN: No rashes. no petechiae. Results CBC & Chem 7: 11/14/24 20:17 11/15/24 11:04 Labs: Abnormal Lab Results - Last 24 Hours (Table) 11/14/24 11/14/24 11/14/24 Range/Units 20:17 20:17 20:17 WBC 14.59 H (4.50-10.00) 10*3/uL Immature Gran # 0.21 H (0.00-0.04) 10*3/uL Neutrophils # (Manual) 12.83 H (1.3-7.7) k/uL Lymphocytes # (Manual) 0.73 L (1.0-4.8) k/uL Sodium 126 L (137-145) mmol/L Potassium (3.5-5.1) mmol/L Chloride 88 L (98-107) mmol/L BUN 35 H (7-17) mg/dL Creatinine 2.07 H (0.52-1.04) mg/dL Glucose 121 H (74-99) mg/dL Calcium (8.4-10.2) mg/dL AST 42 H (14-36) U/L ALT 66 H (4-34) U/L Alkaline Phosphatase 311 H (38-126) U/L Total Protein 5.8 L (6.3-8.2) g/dL Albumin 3.2 L (3.5-5.0) g/dL Lipase 15 L (23-300) U/L Urine Appearance (Clear) Urine Protein (Negative) Urine Blood (Negative) Ur Squamous Epith Cells (0-4) /hpf Amorphous Sediment (None) /hpf Urine Bacteria (None) /hpf Hyaline Casts (0-2) /lpf Urine Mucus (None) /hpf 11/14/24 11/15/24 Range/Units 23:38 11:04 WBC (4.50-10.00) 10*3/uL Immature Gran # (0.00-0.04) 10*3/uL Neutrophils # (Manual) (1.3-7.7) k/uL Lymphocytes # (Manual) (1.0-4.8) k/uL Sodium 131 L (137-145) mmol/L Potassium 3.0 L (3.5-5.1) mmol/L Chloride (98-107) mmol/L BUN 19 H (7-17) mg/dL Creatinine (0.52-1.04) mg/dL Glucose 121 H (74-99) mg/dL Calcium 8.3 L (8.4-10.2) mg/dL AST (14-36) U/L ALT (4-34) U/L Alkaline Phosphatase (38-126) U/L Total Protein (6.3-8.2) g/dL Albumin (3.5-5.0) g/dL Lipase (23-300) U/L Urine Appearance Cloudy H (Clear) Urine Protein 1+ H (Negative) Urine Blood Small H (Negative) Ur Squamous Epith Cells 5 H (0-4) /hpf Amorphous Sediment Rare H (None) /hpf Urine Bacteria Rare H (None) /hpf Hyaline Casts 51 H (0-2) /lpf Urine Mucus Rare H (None) /hpf Thrombosis Risk Factor Assmnt - Choose All That Apply Any of the Below Risk Factors Present?: Yes Each Factor Represents 1 point: History of prior major surgery (<1month) Other Risk Factors: Yes Each Risk Factor Represents 2 Points: Age 61-74 years, Malignancy Other congenital or acquired thrombophilia - If yes, enter type in comment: No Thrombosis Risk Factor Assessment Total Risk Factor Score: 5 Thrombosis Risk Factor Assessment Level: High Risk Assessment and Plan Assessment: Hypotension, present on admission. Improved Hyponatremia Acute kidney injury History of lung cancer with brain mets Nicotine dependence Recent laparoscopic cholecystectomy done at [facility] at 5 days prior to hospitalization Lung cancers with metastasis to the brain Severe calorie protein malnutrition Plan: Continue with normal saline Hold antihypertensive medication and resume when blood pressure improves Patient counseled to quit smoking Continue with IV fluid Follow-up creatinine and blood pressure Nephrology consult and hematology/oncology team consult Labs and medication were reviewed.. Continue same treatment. Continue with symptomatic treatment. Resume home medication. Monitor labs and vitals. DVT and GI prophylaxis. Further recommendations as per clinical course of the patient DVT prophylaxis: Subcutaneous heparin GI Prophylaxis: Pepcid PT/OT: Pending Prognosis is guarded
[2024-11-16] MEDS: ONDANSETRON 4 MG/2 ML VIAL IVP PRN (06:34)
[2024-11-16 07:28] VITALS: RESP 18; TEMP 98.8
[2024-11-16 07:49] LABS: HCT 33.2 % (37.2-46.3); HGB 11.0 g/dL (12.0-15.0); MCH 29.8 pg (27.0-32.0); MCHC 33.1 g/dL (32.0-37.0); MCV 90.0 FL (80.0-97.0); NRBC Per 100 WBC 0 X 10*3/uL (0.00-0.01); Platelet Count 312 X 10*3/uL (140-440); RBC 3.69 X 10*6/uL (4.10-5.20); RDW 13.1 % (11.5-14.5); WBC 9.16 X 10*3/uL (4.50-10.00)
[2024-11-16 07:58] LABS: Anion Gap 8.10 mmol/L (4.00-12.00); BUN/Creat Ratio 20.25 Ratio (12.00-20.00); Blood Urea Nitrogen 8.1 mg/dL (9.0-27.0); Calcium 7.5 mg/dL (8.7-10.3); Carbon Dioxide 27.9 mmol/L (21.6-31.8); Chloride 102 mmol/L (96-109); Glucose 144 mg/dL (70-110); Potassium 3.5 mmol/L (3.5-5.5); Sodium 138 mmol/L (135-145)
[2024-11-16] MEDS: HEPARIN SODIUM,PORCINE 5,000 UNIT/ML 1 ML VIAL SQ SCH (08:09)
[2024-11-16] MEDS: FAMOTIDINE 20 MG/2 ML VIAL IV SCH (08:09)
--- NOTE | 2024-11-16 08:15 | P.PN ---
Subjective Patient is seen in follow-up for acute kidney injury. Renal function back to baseline. Oral intake is good. No active complaints. Vital signs are stable. General: No acute distress. HEENT: Head exam is unremarkable. LUNGS: No audible rhonchi or wheezes. HEART: Rate and Rhythm are regular. ABDOMEN: Nontender. EXTREMITITES: No edema. Objective - Vital Signs Vital signs: Vital Signs Temp 98.8 F 11/16/24 07:04 Pulse 69 11/16/24 07:04 Resp 18 11/16/24 07:04 BP 154/82 11/16/24 07:04 Pulse Ox 100 11/16/24 07:04 FiO2 Intake & Output 11/15/24 11/16/24 11/16/24 18:59 06:59 18:59 Intake Total 2560 Balance 2560 Intake: Intake, IV Titration 900 Amount Sodium Chloride 0.9% 1, 900 000 ml @ 75 mls/hr IV . [id number] [facility] Rx#:[id number] Oral 1660 Other: Voiding Method Toilet # Voids 3 3 - Labs CBC & Chem 7: 11/16/24 04:10 11/16/24 04:10 Labs: Abnormal Lab Results - Last 24 Hours (Table) 11/15/24 11/16/24 11/16/24 Range/Units 11:04 04:10 04:10 RBC 3.69 L (4.10-5.20) X 10*6/uL Hgb 11.0 L (12.0-15.0) g/dL Hct 33.2 L (37.2-46.3) % Sodium 131 L (137-145) mmol/L Potassium 3.0 L (3.5-5.1) mmol/L BUN 19 H 8.1 L (7-17) mg/dL Creatinine 0.4 L (0.6-1.5) mg/dL BUN/Creatinine Ratio 20.25 H (12.00-20.00) Ratio Glucose 121 H 144 H (74-99) mg/dL Calcium 8.3 L 7.5 L (8.4-10.2) mg/dL Assessment and Plan Plan: Assessment: 1. Acute kidney injury secondary to ATN secondary to hypotension, further worsened with the use of DESHAWN inhibitor. Creatinine 2.1 at admission and is down to 0.4 today. No hydronephrosis noted on ultrasound. 2. Hypovolemic hyponatremia. Improved with fluids. 3. Hypotension secondary to hypovolemia. Resolved. 4. Metastatic adenocarcinoma of the lung. 5. Hypokalemia from renal potassium wasting. Replaced. Improved. Plan: Hep-Lock IV fluids. Encouraged oral intake. Add amlodipine 5 mg once daily. Continue to hold DESHAWN inhibitor.
[2024-11-16 08:30] LABS: Basophils # (A) 0.04 X 10*3/uL (0.00-0.10); Basophils % (A) 0.4 %; Eosinophils # (A) 0.17 X 10*3/uL (0.04-0.35); Eosinophils % (A) 1.9 %; Immature Grans, Automated 1.50 %; Lymphocytes # (A) 1.11 X 10*3/uL (0.90-5.00); Lymphocytes % (A) 12.1 %; Monocytes # (A) 0.57 X 10*3/uL (0.20-1.00); Monocytes % (A) 6.2 %; Neutrophils # (A) 7.13 X 10*3/uL (1.80-7.70); Neutrophils % (A) 77.9 %
[2024-11-16] MEDS: amLODIPine 5 MG TAB PO SCH (08:57)
[2024-11-16 12:53] VITALS: BP 142/80; PULSE 71
[2024-11-16 14:00] VITALS: BMI 18.1
== END 2024-11-16 16:50 | disposition home or self-care (01) ==
LOC: EC 20:01 → 5NMEDONC 23:21
PROVIDERS: ADMIT Hospitalist; ATTEND Hospitalist
DX: N17.0 Acute kidney failure with tubular necrosis (principal); I95.89 Other hypotension; E87.1 Hypo-osmolality and hyponatremia; E86.1 Hypovolemia; E87.6 Hypokalemia; E86.0 Dehydration; E43 Unspecified severe protein-calorie malnutrition; C34.90 Malignant neoplasm of unspecified part of unspecified bronchus or lung; C79.51 Secondary malignant neoplasm of bone; C79.31 Secondary malignant neoplasm of brain; D72.829 Elevated white blood cell count, unspecified; I10 Essential (primary) hypertension; F17.210 Nicotine dependence, cigarettes, uncomplicated; Z79.899 Other long term (current) drug therapy; Z90.49 Acquired absence of other specified parts of digestive tract; Z71.6 Tobacco abuse counseling
CPT/HCPCS: 96372; 96374; 96375; 99285; 36415; 93005; 97161; 84300; 83930; 80053; 80048 ×2; 84443; 82533; 83605; 83690; 83735; 85025 ×2; 81001; 83935; 71046; 76770; G0378 ×2; J2270; J1644; J2405; J1308

== ENCOUNTER → 2024-11-18 | Outpatient (CLI) | payer MEDICARE ==
--- NOTE | 2024-11-18 10:10 | MR ---
EXAMINATION TYPE: MR brain wo/w con DATE OF EXAM: 11/18/2024 9:17 AM COMPARISON: 08/24/2024 CLINICAL INDICATION: Female, 74 years old with history of R22.1 LOCALIZED SWELLING, MASS AND LUMP, NE CK, Secondary Malignant neoplasm of brain, IV Contrast: 4.5 cc Gadobutrol (None if empty) TECHNIQUE: Multiplanar, multisequence images of the brain and brainstem were acquired before and aft er administration of 4.5 mL IV Gadobutrol. Diffusion weighted imaging is performed. FINDINGS: Mild generalized supratentorial volume loss. No midline shift, hydrocephalus, or herniation. Bilateral choroid plexus cysts are demonstrated. Redemonstrated diffuse smooth dural enhancement. Scattered areas of infiltrative right T2/FLAIR white matter signal is redemonstrated such as lateral left frontal lobe, superior left frontoparietal junction, and left temporal insular junction without significant change. Background scattered moderate burden of chronic small vessel ischemic disease. Mild volume loss overl rachael the bilateral cerebral convexities. There are approximately 4 supratentorial lesions at the escalona-white matter interface that either show nodular enhancement or ring enhancement: * 3 mm lesion superior left frontal lobe is slightly larger. Previously punctate. * 6 mm lesion lateral left frontal lobe is slightly smaller. Previously 8 mm. * 6 mm lesion right frontal insular junction is smaller and now poorly defined. Previously 8 mm. * 9 mm ring-enhancing lesion left temporal insular junction is larger, previously 7 mm. Otherwise, no annual enhancing lesions are seen. Midline structures demonstrate normal morphology. The craniocervical junction is normal. Dural venous sinuses are patent. Trace mucosal thickening ethmoid air cells. Globes are intact. IMPRESSION: 1. Four supratentorial metastatic foci redemonstrated. A couple of these are slightly larger while a couple are smaller, largest measuring 9 mm versus 7 mm, previously. No new foci seen. 2. Diffuse dural enhancement persists. 3. No midline shift, hydrocephalus, or herniation. [facility], , 11/18/2024 10:08 AM
== END | disposition home or self-care (01) ==
LOC: RADMRIMAIN 08:11
PROVIDERS: ATTEND Radiology Radiation Oncology
DX: C79.31 Secondary malignant neoplasm of brain (principal); C79.89 Secondary malignant neoplasm of other specified sites; C79.51 Secondary malignant neoplasm of bone; G93.89 Other specified disorders of brain
CPT/HCPCS: 70553; A9585